=== PATIENT | female | born 2000 ===

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

== ENCOUNTER 2021-02-08 07:01 | Emergency (ER) | payer OTHER ==
[2021-02-08 07:20] VITALS: TEMP 98.5
[2021-02-08] MEDS ORDERED: ORPHENADRINE 30 MG/ML 2 ML VIAL IM STA (07:45)
[2021-02-08] MEDS ORDERED: KETOROLAC 15 MG/ML 1 ML VIAL IM STA (07:45)
[2021-02-08 08:14] LABS: Appearance,Urine Clear (Clear); Bilirubin,Urine Negative (Negative); Blood,Urine Moderate (Negative); Color,Urine Yellow; Glucose,Urine (UA) Negative (Negative); Ketones,Urine Negative (Negative); Leukocyte Esterase,Urine Negative (Negative); Mucus,Urine Rare /hpf; Nitrite,Urine Negative (Negative); PH, Urine 6.5 (5.0-8.0); Protein,Urine Negative (Negative); RBC,Urine 22 /hpf (0-5); Specific Gravity,Urine 1.022 (1.001-1.035); Squamous Epithelial Cell,Urine 1 /hpf (0-4); Urobilinogen,Urine <2.0 mg/dL (<2.0); WBC,Urine <1 /hpf (0-5)
--- NOTE | 2021-02-08 08:27 | ED ---
General Adult HPI - General Chief complaint: Back Pain/Injury Stated complaint: Back Pain Time Seen by Provider: 02/08/21 07:23 Source: patient, RN notes reviewed Mode of arrival: ambulatory Limitations: no limitations - History of Present Illness Initial comments: 20-year-old female with a past medical history of vertigo presents to the emergency room for a chief complaint of back pain. Patient reports that she was bending down at work yesterday to pick something up and felt a sudden sharp pain in her lower back. States that since that time and has continued to be painful little bit more on the right than the left. States that hurts to stand up straight and walk. Patient denies any weakness of the legs. Denies any radiating pain down the legs or numbness or tingling of the lower extremities. Patient denies blood or bowel changes, fevers, history of IV drug abuse. Patient states she did take Tylenol yesterday but otherwise has not taken any other medications.Patient has no other complaints at this time including shortness of breath, chest pain, abdominal pain, nausea or vomiting, headache, or visual changes. - Related Data Home Medications Medication Instructions Recorded Confirmed Acetaminophen Tab [Tylenol Tab] 1,000 mg PO Q6HR PRN 02/08/21 02/08/21 Ibuprofen [Motrin Ib] 800 mg PO Q8H PRN 02/08/21 02/08/21 Previous Rx's Medication Instructions Recorded Cyclobenzaprine [Flexeril] 5 mg PO TID #12 tablet 02/08/21 Allergies Allergy/AdvReac Type Severity Reaction Status Date / Time No Known Allergies Allergy Verified 02/08/21 07:51 Review of Systems ROS Statement: Those systems with pertinent positive or pertinent negative responses have been documented in the HPI. ROS Other: All systems not noted in ROS Statement are negative. Past Medical History Past Medical History: No Reported History Additional Past Medical History / Comment(s): vertigo History of Any Multi-Drug Resistant Organisms: None Reported Past Surgical History: No Surgical Hx Reported Past Psychological History: No Psychological Hx Reported Smoking Status: Never smoker Past Alcohol Use History: Rare Past Drug Use History: None Reported General Exam Limitations: no limitations General appearance: alert, in no apparent distress Head exam: Present: atraumatic, normocephalic, normal inspection Eye exam: Present: normal appearance, PERRL, EOMI. Absent: scleral icterus, conjunctival injection, periorbital swelling ENT exam: Present: normal exam, mucous membranes moist Neck exam: Present: normal inspection, full ROM. Absent: tenderness, meningismus, lymphadenopathy Respiratory exam: Present: normal lung sounds bilaterally. Absent: respiratory distress, wheezes, rales, rhonchi, stridor Cardiovascular Exam: Present: regular rate, normal rhythm, normal heart sounds. Absent: systolic murmur, diastolic murmur, rubs, gallop, clicks GI/Abdominal exam: Present: soft, normal bowel sounds. Absent: distended, ten derness, guarding, rebound, rigid Extremities exam: Present: normal capillary refill (cap refill less than 2 seconds bilateral lower extremities.), other (Sensation intact bilateral lower extremity. Strength is 5 out of 5.) Back exam: Absent: full ROM (Patient able to extend to a neutral position. Unable to extend past this point. Patient does have full flexion but this does elicit pain.), CVA tenderness (R), CVA tenderness (L), vertebral tenderness Course Vital Signs 02/08/21 07:18 Temperature 98.5 F Pulse Rate 82 Respiratory 20 Rate Blood Pressure 142/89 O2 Sat by Pulse 99 Oximetry Medical Decision Making - Medical Decision Making Vitals are stable. Patient is well-appearing. Pain is mechanical in nature. No red flag symptoms. Urinalysis was obtained. No evidence of infection. Red blood cells likely related to patient's menstrual cycle as she is currently menstruating. HCG is negative. Patient was given Toradol and Norflex. Patient will be discharged home to follow up with primary care or orthopedics. Discussed using Motrin Tylenol and Flexeril for pain. She'll return here for any worsening symptoms. - Lab Data Lab Results 02/08/21 02/08/21 Range/Units 07:54 07:54 Urine Color Yellow Urine Appearance Clear (Clear) Urine pH 6.5 (5.0-8.0) Ur Specific [place] 1.022 (1.001-1.035) Urine Protein Negative (Negative) Urine Glucose (UA) Negative (Negative) Urine Ketones Negative (Negative) Urine Blood Moderate H (Negative) Urine Nitrite Negative (Negative) Urine Bilirubin Negative (Negative) Urine Urobilinogen <2.0 (<2.0) mg/dL Ur Leukocyte Esterase Negative (Negative) Urine RBC 22 H (0-5) /hpf Urine WBC <1 (0-5) /hpf Ur Squamous Epith Cells 1 (0-4) /hpf Urine Mucus Rare H (None) /hpf Urine HCG, Qual Not Detected (Not Detectd) Disposition Clinical Impression: Mechanical back pain Disposition: HOME SELF-CARE Condition: Good Instructions (If sedation given, give patient instructions): Acute Low Back Pain (ED) Additional Instructions: Please take Motrin and Tylenol for pain. You can take 600 mg of Motrin every 6 hours. You can take 1000 mg of Tylenol every 6 hours. Take Flexeril as needed but do not drive, work, or operate machinery if you are taking this. Follow-up with primary care or orthopedics. If symptoms persist you may require an MRI. Return to the emergency room for worsening symptoms such as bladder or bowel changes, weakness in the lower extremities, fevers, or any other worsening symptoms. Prescriptions: Cyclobenzaprine [Flexeril] 5 mg PO TID #12 tablet Is patient prescribed a controlled substance at d/c from ED?: No Referrals: Dirk Miller [STAFF PHYSICIAN] - 1-2 days Faustina Albarado DO [Doctor of Osteopathic Medicine] - 1-2 days Time of Disposition: 08:25
[2021-02-08 08:48] VITALS: BP 126/83; PULSE 89; RESP 18
== END 2021-02-08 08:48 | disposition home or self-care (01) ==
LOC: EC 07:01
DX: M54.5 Low back pain (principal); X50.1XXA Overexertion from prolonged static or awkward postures, initial encounter; Y92.69 Other specified industrial and construction area as the place of occurrence of the external cause; Y99.0 Civilian activity done for income or pay
CPT/HCPCS: 81001; 81025; 99283; 96372 ×2; J2360; J1885

== ENCOUNTER 2021-02-18 15:25 | Emergency (ER) | payer OTHER ==
[2021-02-18 15:29] VITALS: BP 127/83; PULSE 80; RESP 20; TEMP 97.9
[2021-02-18] MEDS ORDERED: ACETAMINOPHEN TAB 325 MG TAB PO STA (16:52)
--- NOTE | 2021-02-18 17:24 | ED ---
General Adult HPI - General Chief complaint: ENT Stated complaint: Sore throat Time Seen by Provider: 02/18/21 15:57 Source: patient, RN notes reviewed Mode of arrival: ambulatory Limitations: no limitations - History of Present Illness Initial comments: 20-year-old female presents to the emergency room for a chief complaint of sore throat. Patient states that yesterday she started to get a sore throat. States it is scratchy and painful socially when she swallows. States her nose is running as well. Patient denies fevers. Denies cough. Denies shortness of breath. Patient denies anyone else being sick around her. Denies any known Covid exposures.Patient has no other complaints at this time including shortness of breath, chest pain, abdominal pain, nausea or vomiting, headache, or visual changes. - Related Data Home Medications Medication Instructions Recorded Confirmed Acetaminophen Tab [Tylenol] 1,000 mg PO Q4-6H PRN 02/18/21 02/18/21 Dm/Acetaminophen/Doxylamine [Vicks 1 cap PO HS PRN 02/18/21 02/18/21 Nyquil Liquicaps] guaiFENesin SYRUP 100MG/5ML 200 mg PO Q4-6H PRN 02/18/21 02/18/21 [Robitussin] Allergies Allergy/AdvReac Type Severity Reaction Status Date / Time No Known Allergies Allergy Verified 02/18/21 16:23 Review of Systems ROS Statement: Those systems with pertinent positive or pertinent negative responses have been documented in the HPI. ROS Other: All systems not noted in ROS Statement are negative. Past Medical History Past Medical History: No Reported History Additional Past Medical History / Comment(s): vertigo History of Any Multi-Drug Resistant Organisms: None Reported Past Surgical History: No Surgical Hx Reported Past Psychological History: No Psychological Hx Reported Smoking Status: Never smoker Past Alcohol Use History: Rare Past Drug Use History: None Reported General Exam Limitations: no limitations General appearance: alert, in no apparent distress Head exam: Present: atraumatic, normocephalic, normal inspection Eye exam: Present: normal appearance, PERRL, EOMI. Absent: scleral icterus, conjunctival injection, periorbital swelling ENT exam: Present: normal exam, normal oropharynx (No tonsillar exuded, uvula midline), mucous membranes moist, TM's normal bilaterally, normal external ear exam Neck exam: Present: normal inspection, full ROM. Absent: tenderness, meningismus, lymphadenopathy Respiratory exam: Present: normal lung sounds bilaterally. Absent: respiratory distress, wheezes, rales, rhonchi, stridor Cardiovascular Exam: Present: regular rate, normal rhythm, normal heart sounds. Absent: systolic murmur, diastolic murmur, rubs, gallop, clicks GI/Abdominal exam: Present: soft, normal bowel sounds. Absent: distended, tenderness, guarding, rebound, rigid Course Vital Signs 02/18/21 15:27 Temperature 97.9 F Pulse Rate 80 Respiratory 20 Rate Blood Pressure 127/83 O2 Sat by Pulse 99 Oximetry Medical Decision Making - Medical Decision Making Vitals are stable. Patient is not short of breath. Strep is negative. Tucker virus is positive. Patient denies cough or shortness of breath, does not require chest x-ray this time. She is stable for discharge home. recommend she follow up with her doctor and drink plenty of fluids. If she has any worsening symptoms she'll return here to the emergency room. - Lab Data Lab Results 02/18/21 02/18/21 Range/Units 17:30 17:30 Coronavirus (PCR) Detected A (Not Detectd) Group A Strep Rapid Negative (Negative) Disposition Clinical Impression: COVID-19 Disposition: HOME SELF-CARE Condition: Good Instructions (If sedation given, give patient instructions): Coronavirus Disease 2019 (COVID-19) Additional Instructions: Please drink plenty of fluids. Take Motrin and Tylenol for fever. Follow-up with your doctor. You muust quarantine for at least 10-14 days from symptom onset. Return to the emergency room for any worsening symptoms. Is patient prescribed a controlled substance at d/c from ED?: No Referrals: Dirk Miller [STAFF PHYSICIAN] - 1-2 days Time of Disposition: 18:07
== END 2021-02-18 18:24 | disposition home or self-care (01) ==
LOC: EC 15:25
DX: U07.1 COVID-19 (principal)
CPT/HCPCS: 87081; 87430; 87635; 99283

== ENCOUNTER 2021-04-16 09:29 | Emergency (ER) | payer OTHER ==
[2021-04-16 09:33] VITALS: BP 131/76; PULSE 87; RESP 18; TEMP 97.8
--- NOTE | 2021-04-16 09:52 | ED ---
General Adult HPI - General Chief complaint: Upper Respiratory Infection Stated complaint: congestion Time Seen by Provider: 04/16/21 09:39 Source: patient, RN notes reviewed Mode of arrival: ambulatory Limitations: no limitations - History of Present Illness Initial comments: Patient is a pleasant 20-year-old female presenting to the emergency department with nasal congestion and sore throat. Onset of symptoms was 2-3 days ago. No fever. Occasional cough. Patient relates to her congestion. Cough is nonproductive. No dyspnea. No fevers. Patient did have rotavirus infection just 2 months ago. - Related Data Home Medications Medication Instructions Recorded Confirmed Acetaminophen Tab [Tylenol] 1,000 mg PO Q4-6H PRN 02/18/21 04/16/21 guaiFENesin SYRUP 100MG/5ML 200 mg PO Q4-6H PRN 02/18/21 04/16/21 [Robitussin] guaiFENesin [Mucinex] 600 mg PO Q12H PRN 04/16/21 04/16/21 Allergies Allergy/AdvReac Type Severity Reaction Status Date / Time No Known Allergies Allergy Verified 04/16/21 10:47 Review of Systems ROS Statement: Those systems with pertinent positive or pertinent negative responses have been documented in the HPI. ROS Other: All systems not noted in ROS Statement are negative. Constitutional: Denies: fever Eyes: Denies: eye pain ENT: Denies: ear pain Respiratory: Reports: as per HPI. Denies: dyspnea Cardiovascular: Denies: chest pain Endocrine: Denies: fatigue Gastrointestinal: Denies: abdominal pain Genitourinary: Denies: urgency Musculoskeletal: Denies: back pain Skin: Denies: rash Neurological: Denies: weakness Past Medical History Past Medical History: No Reported History Additional Past Medical History / Comment(s): vertigo History of Any Multi-Drug Resistant Organisms: None Reported Past Surgical History: No Surgical Hx Reported Past Psychological History: No Psychological Hx Reported Smoking Status: Never smoker Past Alcohol Use History: Rare Past Drug Use History: None Reported General Exam Limitations: no limitations General appearance: alert, in no apparent distress Head exam: Present: normocephalic Eye exam: Present: normal appearance ENT exam: Present: other (Pharyngeal erythema) Neck exam: Present: lymphadenopathy (Mild anterior cervical, nontender). Absent: meningismus Respiratory exam: Present: normal lung sounds bilaterally Cardiovascular Exam: Present: regular rate, normal rhythm GI/Abdominal exam: Present: soft. Absent: tenderness, organomegaly Extremities exam: Present: normal inspection Neurological exam: Present: alert Psychiatric exam: Present: normal affect, normal mood Skin exam: Present: normal color Course Vital Signs 04/16/21 09:29 Temperature 97.8 F Pulse Rate 87 Respiratory 18 Rate Blood Pressure 131/76 O2 Sat by Pulse 99 Oximetry Medical Decision Making - Medical Decision Making Patient reevaluated and updated. - Lab Data Lab Results 04/16/21 Range/Units 10:03 Group A Strep Rapid Negative (Negative) Disposition Clinical Impression: Acute upper respiratory infection Disposition: HOME SELF-CARE Condition: Stable Instructions (If sedation given, give patient instructions): Upper Respiratory Infection (ED) Additional Instructions: [id number] Tylenol or Motrin if needed. Salt water gargle as needed. Saline nasal spray. [id number]-[id number] antihistamines such as Claritin or Krystle or Benadryl if needed. Return for difficulty breathing, not tolerating oral intake, worsening symptoms or any other concerns. Is patient prescribed a controlled substance at d/c from ED?: No Referrals: Yamile Genao MD [STAFF PHYSICIAN] - 1-2 days Time of Disposition: 11:07
== END 2021-04-16 11:44 | disposition home or self-care (01) ==
LOC: EC 09:29
DX: J06.9 Acute upper respiratory infection, unspecified (principal)
CPT/HCPCS: 87081; 87430; 99283

== ENCOUNTER 2021-05-02 17:14 | Emergency (ER) | payer OTHER ==
[2021-05-02 17:36] VITALS: BP 134/87; PULSE 87; RESP 18; TEMP 98
[2021-05-02 18:09] LABS: Appearance,Urine Clear (Clear); Bilirubin,Urine Negative (Negative); Blood,Urine Negative (Negative); Color,Urine Yellow; Glucose,Urine (UA) Negative (Negative); Ketones,Urine Negative (Negative); Leukocyte Esterase,Urine Negative (Negative); Nitrite,Urine Negative (Negative); PH, Urine 6.5 (5.0-8.0); Protein,Urine Trace (Negative); Urobilinogen,Urine <2.0 mg/dL (<2.0)
[2021-05-02] MEDS ORDERED: cefTRIAXone 1,000 MG VIAL (IM USE) IM STA (21:03)
[2021-05-02] MEDS ORDERED: DOXYCYCLINE 100 MG CAP PO STA (21:03)
[2021-05-02] MEDS ORDERED: metroNIDAZOLE 500 MG TAB PO STA (21:03)
--- NOTE | 2021-05-02 21:05 | ED ---
General Adult HPI - General Chief complaint: Urogenital Stated complaint: UTI Time Seen by Provider: 05/02/21 20:24 Source: patient Mode of arrival: ambulatory Limitations: no limitations - History of Present Illness Initial comments: 20 year-old female patient presents to the emergency department for evaluation of dysuria x1 week. States that she has also had increase in vaginal discharge. Denies any urinary frequency or urgency. Denies back pain, abdominal pain, fever, or chills. Denies any nausea or vomiting. Denies chance of . States she has had UTI in the past and feels like her symptoms are similar. - Related Data Home Medications Medication Instructions Recorded Confirmed Acetaminophen Tab [Tylenol] 1,000 mg PO Q4-6H PRN 02/18/21 04/16/21 guaiFENesin SYRUP 100MG/5ML 200 mg PO Q4-6H PRN 02/18/21 04/16/21 [Robitussin] guaiFENesin [Mucinex] 600 mg PO Q12H PRN 04/16/21 04/16/21 Previous Rx's Medication Instructions Recorded Doxycycline [Vibramycin] 100 mg PO BID #14 capsule 05/02/21 Allergies Allergy/AdvReac Type Severity Reaction Status Date / Time No Known Allergies Allergy Verified 05/02/21 18:51 Review of Systems ROS Statement: Those systems with pertinent positive or pertinent negative responses have been documented in the HPI. ROS Other: All systems not noted in ROS Statement are negative. Past Medical History Past Medical History: No Reported History Additional Past Medical History / Comment(s): vertigo History of Any Multi-Drug Resistant Organisms: None Reported Past Surgical History: No Surgical Hx Reported Past Psychological History: No Psychological Hx Reported Smoking Status: Never smoker Past Alcohol Use History: Rare Past Drug Use History: None Reported General Exam Limitations: no limitations General appearance: alert, in no apparent distress ENT exam: Present: normal exam, normal oropharynx, mucous membranes moist Respiratory exam: Present: normal lung sounds bilaterally. Absent: respiratory distress, wheezes, rales, rhonchi, stridor Cardiovascular Exam: Present: regular rate, normal rhythm, normal heart sounds. Absent: systolic murmur, diastolic murmur, rubs, gallop, clicks GI/Abdominal exam: Present: soft, normal bowel sounds. Absent: distended, tenderness, guarding, rebound, rigid External exam: Present: normal external exam Speculum exam: Present: erythema (cervical), vaginal discharge (thin, yellow) By manual exam: Present: normal by manual exam. Absent: cervical motion tenderness Neurological exam: Present: alert, oriented X3, CN II-XII intact Psychiatric exam: Present: normal affect, normal mood Skin exam: Present: warm, dry, intact, normal color. Absent: rash Course Vital Signs 05/02/21 17:33 Temperature 98.0 F Pulse Rate 87 Respiratory 18 Rate Blood Pressure 134/87 O2 Sat by Pulse 98 Oximetry Medical Decision Making - Medical Decision Making 20-year-old female patient presented to the emergency department today for evaluation of dysuria. Physical examination revealed soft nontender abdomen. No CVA tenderness. Urinalysis came back negative for UTI. Did perform pelvic exam, obtained swabs. She did test positive for Trichomonas. She was treated with 2000 mg of Flagyl, 500 mg of Rocephin and 1 week of doxycycline. She'll be discharged from the primary care physician and [facility] for further evaluation as soon as possible. Return parameters were discussed in detail. She verbalizes understanding and agrees with this plan. My attending is Dr. Ashley. - Lab Data Lab Results 05/02/21 05/02/21 05/02/21 Range/Units 17:46 17:46 21:16 Urine Color Yellow Urine Appearance Clear (Clear) Urine pH 6.5 (5.0-8.0) Ur Specific [place] 1.030 (1.001-1.035) Urine Protein Trace H (Negative) Urine Glucose (UA) Negative (Negative) Urine Ketones Negative (Negative) Urine Blood Negative (Negative) Urine Nitrite Negative (Negative) Urine Bilirubin Negative (Negative) Urine Urobilinogen <2.0 (<2.0) mg/dL Ur Leukocyte Esterase Negative (Negative) Urine HCG, Qual Not Detected (Not Detectd) Trichomonas Ag (Rapid) Positive H (Negative) Disposition Clinical Impression: Dysuria, Cervicitis Disposition: HOME SELF-CARE Condition: Good Instructions (If sedation given, give patient instructions): Cervicitis (ED), Sexually Transmitted Diseases (ED) Additional Instructions: Take medications as directed. Await culture results, these generally takes 3 days. Follow-up with the primary care physician for recheck in 1-2 days. Follow-up with [facility] as possible. Return for any new, worsening, or concerning symptoms. Prescriptions: Doxycycline [Vibramycin] 100 mg PO BID #14 capsule Is patient prescribed a controlled substance at d/c from ED?: No Referrals: None,Stated [Primary Care Provider] - 1-2 days Time of Disposition: 21:05
[2021-05-03 16:20] LABS: C. trachomatis,PCR Negative (Neg,Equiv); Chlamydia trachomatis Source Vagina; N. gonorrhoeae,PCR Negative (Neg,Equiv); Neisseria Source Vagina
== END 2021-05-02 22:08 | disposition home or self-care (01) ==
LOC: EC 17:14
DX: N72 Inflammatory disease of cervix uteri (principal); R30.0 Dysuria
CPT/HCPCS: 81003; 81025; 87808; 87491; 87591; 87070; 99283; 96372; J0696

== ENCOUNTER 2021-05-25 14:50 | Emergency (ER) | payer OTHER ==
[2021-05-25 15:02] VITALS: BP 137/91; PULSE 89; RESP 18; TEMP 98
[2021-05-25 16:02] LABS: Appearance,Urine Clear (Clear); Bilirubin,Urine Negative (Negative); Blood,Urine Negative (Negative); Color,Urine Light Yellow; Glucose,Urine (UA) Negative (Negative); Ketones,Urine Negative (Negative); Leukocyte Esterase,Urine Negative (Negative); Nitrite,Urine Negative (Negative); PH, Urine 6.5 (5.0-8.0); Protein,Urine Negative (Negative); Specific Gravity,Urine 1.021 (1.001-1.035); Urobilinogen,Urine <2.0 mg/dL (<2.0)
--- NOTE | 2021-05-25 16:29 | ED ---
Abdominal Pain HPI - General Chief Complaint: Abdominal Pain Stated Complaint: STD Time Seen by Provider: 05/25/21 15:06 Source: patient Mode of arrival: ambulatory Limitations: no limitations - History of Present Illness Initial Comments: Patient is a 20-year-old female presenting to emergency Department with concerns of possible STD. Patient states she was here approximately 3 weeks ago, was diagnosed with trichomonas and was treated. She states she finished the entire course of medicine. She states 2 weeks ago she took a test which was positive. She is still having a little bit of discharge and is concerned that she still has an STD. She denies any fevers or chills, no abdominal pain, no vaginal bleeding. This would be her first . Patient has no chest pain or shortness of breath. There are no further complaints at this time. - Related Data Home Medications Medication Instructions Recorded Confirmed Acetaminophen Tab [Tylenol] 1,000 mg PO Q4-6H PRN 02/18/21 04/16/21 guaiFENesin SYRUP 100MG/5ML 200 mg PO Q4-6H PRN 02/18/21 04/16/21 [Robitussin] guaiFENesin [Mucinex] 600 mg PO Q12H PRN 04/16/21 04/16/21 Previous Rx's Medication Instructions Recorded Doxycycline [Vibramycin] 100 mg PO BID #14 capsule 05/02/21 Allergies Allergy/AdvReac Type Severity Reaction Status Date / Time No Known Allergies Allergy Verified 05/25/21 15:02 Review of Systems ROS Statement: Those systems with pertinent positive or pertinent negative responses have been documented in the HPI. ROS Other: All systems not noted in ROS Statement are negative. Past Medical History Past Medical History: No Reported History Additional Past Medical History / Comment(s): vertigo History of Any Multi-Drug Resistant Organisms: None Reported Past Surgical History: No Surgical Hx Reported Past Psychological History: No Psychological Hx Reported Smoking Status: Never smoker Past Alcohol Use History: None Reported Past Drug Use History: None Reported General Exam - General Exam Comments Initial Comments: GENERAL: Patient is well-developed and well-nourished. Patient is nontoxic and in no acute distress. HEAD: Atraumatic, normocephalic. EYES: Pupils equal round and reactive to light, extraocular movements intact, sclera anicteric, conjunctiva are normal. Eyelids were unremarkable. ENT: TMs normal, nares patent, oropharynx clear without exudates. Moist mucous membranes. NECK: Normal range of motion, supple without lymphadenopathy or JVD. LUNGS: Unlabored respirations. Breath sounds clear to auscultation bilaterally and equal. No wheezes rales or rhonchi. HEART: Regular rate and rhythm without murmurs, rubs or gallops. ABDOMEN: Soft, nontender, normoactive bowel sounds. No guarding, no rebound. No masses appreciated. MUSCULOSKELETAL: Normal extremities with adequate strength and normal range of motion, no pitting or edema. No clubbing or cyanosis. NEUROLOGICAL: Patient is alert and oriented x 3. Motor and sensory are also intact. Cranial nerves II through XII grossly intact. Symmetrical smile. Normal speech, normal gait. PSYCH: Normal mood, normal affect. SKIN: Warm, Dry, normal turgor, no rashes or lesions noted. Limitations: no limitations External exam: Present: normal external exam Speculum exam: Present: normal speculum exam By manual exam: Present: normal by manual exam Course Vital Signs 05/25/21 14:58 Temperature 98.0 F Pulse Rate 89 Respiratory 18 Rate Blood Pressure 137/91 O2 Sat by Pulse 98 Oximetry Medical Decision Making - Medical Decision Making Patient is a 20-year-old female here with concerns of possible STD. She still having some mild cervical discharge, she was diagnosed with trichomonas 3 weeks ago, finished treatment. She recently tested positive for as well. No abdominal pain, no fevers, no vaginal bleeding. Urine today looks normal, urine hCG is positive. Trichomonas is negative. Gonorrhea, chlamydia, genital culture are all pending. We will await the results of these tests for any further treatment secondary to her . She can follow up with her T[employer]ATING INSPECTOR. Return parameters were discussed with the patient she verbalized understanding. She is stable for discharge. Case discussed with Dr. Blandon. - Lab Data Lab Results 05/25/21 05/25/21 05/25/21 Range/Units 15:52 15:52 15:52 Urine Color Light Yellow Urine Appearance Clear (Clear) Urine pH 6.5 (5.0-8.0) Ur Specific [place] 1.021 (1.001-1.035) Urine Protein Negative (Negative) Urine Glucose (UA) Negative (Negative) Urine Ketones Negative (Negative) Urine Blood Negative (Negative) Urine Nitrite Negative (Negative) Urine Bilirubin Negative (Negative) Urine Urobilinogen <2.0 (<2.0) mg/dL Ur Leukocyte Esterase Negative (Negative) Urine HCG, Qual Detected (Not Detectd) Trichomonas Ag (Rapid) Negative (Negative) Disposition Clinical Impression: , Dysuria Disposition: HOME SELF-CARE Condition: Stable Instructions (If sedation given, give patient instructions): Normal Exam (ED) Additional Instructions: Please return to the Emergency Department if symptoms worsen or any other concerns. Cultures are pending at this time. Please follow up with your TREATING INSPECTOR. Is patient prescribed a controlled substance at d/c from ED?: No Referrals: None,Stated [Primary Care Provider] - 1-2 days Time of Disposition: 16:28
[2021-05-27 15:47] LABS: C. trachomatis,PCR Negative (Neg,Equiv); Chlamydia trachomatis Source Cervix; N. gonorrhoeae,PCR Negative (Neg,Equiv); Neisseria Source Cervix
== END 2021-05-25 16:30 | disposition home or self-care (01) ==
LOC: EC 14:50
DX: O26.899 Other specified pregnancy related conditions, unspecified trimester (principal); R30.0 Dysuria; Z79.899 Other long term (current) drug therapy; Z3A.00 Weeks of gestation of pregnancy not specified
CPT/HCPCS: 81003; 81025; 87070; 87491; 87591; 87808; 99283

== ENCOUNTER 2021-06-05 | Emergency (ER) | payer OTHER | END 2021-06-05 10:36 | disposition home or self-care (01) | CPT/HCPCS: 36415; 76801; 76817; 80053; 81001; 84702; 85025; 86900; 86901; 99284 ==

== ENCOUNTER 2021-09-24 18:19 | Emergency (ER) | payer OTHER ==
[2021-09-24] MEDS ORDERED: ACETAMINOPHEN TAB 325 MG TAB PO STA (20:58)
--- NOTE | 2021-09-24 21:03 | ED ---
Fever HPI - General Chief Complaint: Fever Stated Complaint: 23wks preg, fever, bodyaches, chest pain Time Seen by Provider: 09/24/21 20:40 Source: patient, RN notes reviewed Mode of arrival: ambulatory Limitations: no limitations - History of Present Illness Initial Comments: Patient is a 21-year-old female that presents to the emergency department com plaining of a fever. She notes that she also has muscle aches fatigue and a mild cough. She denied any close contact with Covid-positive people. She was otherwise well-appearing. She denied any chest pain shortness breath headache nausea vomiting diarrhea constipation fever fatigue chills. - Related Data Home Medications Medication Instructions Recorded Confirmed Acetaminophen Tab [Tylenol] 1,000 mg PO Q4-6H PRN 02/18/21 04/16/21 guaiFENesin SYRUP 100MG/5ML 200 mg PO Q4-6H PRN 02/18/21 04/16/21 [Robitussin] guaiFENesin [Mucinex] 600 mg PO Q12H PRN 04/16/21 04/16/21 Previous Rx's Medication Instructions Recorded Doxycycline [Vibramycin] 100 mg PO BID #14 capsule 05/02/21 Allergies Allergy/AdvReac Type Severity Reaction Status Date / Time No Known Allergies Allergy Verified 06/05/21 08:17 Review of Systems ROS Statement: Those systems with pertinent positive or pertinent negative responses have been documented in the HPI. ROS Other: All systems not noted in ROS Statement are negative. Past Medical History Past Medical History: No Reported History Additional Past Medical History / Comment(s): vertigo History of Any Multi-Drug Resistant Organisms: None Reported Past Surgical History: No Surgical Hx Reported Past Psychological History: No Psychological Hx Reported Smoking Status: Never smoker Past Alcohol Use History: None Reported Past Drug Use History: None Reported General Exam Limitations: no limitations General appearance: alert, in no apparent distress, obese Head exam: Present: atraumatic, normocephalic, normal inspection Eye exam: Present: normal appearance, PERRL, EOMI. Absent: scleral icterus, conjunctival injection, periorbital swelling ENT exam: Present: normal exam, mucous membranes moist Neck exam: Present: normal inspection Respiratory exam: Present: normal lung sounds bilaterally. Absent: respiratory distress, wheezes, rales, rhonchi, stridor Cardiovascular Exam: Present: regular rate, normal rhythm, normal heart sounds. Absent: systolic murmur, diastolic murmur, rubs, gallop, clicks Extremities exam: Present: normal inspection, full ROM, normal capillary refill. Absent: tenderness, pedal edema, joint swelling, calf tenderness Neurological exam: Present: alert, oriented X3 Psychiatric exam: Present: normal affect, normal mood Skin exam: Present: warm, dry, intact, normal color. Absent: rash Course Vital Signs 09/24/21 18:48 Temperature 99.3 F Pulse Rate 111 H Respiratory 16 Rate Blood Pressure 123/84 O2 Sat by Pulse 96 Oximetry Medical Decision Making - Medical Decision Making 21-year-old female with a mild fever. 4 Plex ordered. 4 Plex negative. Patient has a upper respiratory tract syndrome with mild fever. 650 mg of Tylenol ordered. Case discussed with Dr. Ashley, patient can discharge home. - Lab Data Lab Results 09/24/21 Range/Units 18:52 Influenza Type A (PCR) Not Detected (Not Detectd) Influenza Type B (PCR) Not Detected (Not Detectd) RSV (PCR) Not Detected (Not Detectd) SARS-CoV-2 (PCR) Not Detected (Not Detectd) Disposition Clinical Impression: Upper respiratory tract infection, Fever Disposition: HOME SELF-CARE Condition: Stable Instructions (If sedation given, give patient instructions): Fever in Adults (ED) Additional Instructions: Please return to the Emergency Department if symptoms worsen or any other concerns. Follow-up with primary care in 1-2 days. Tylenol Motrin alternating every 3 hours for fever. Plenty of fluids and rest. Is patient prescribed a controlled substance at d/c from ED?: No Referrals: None,Stated [Primary Care Provider] - 1-2 days Time of Disposition: 21:03
[2021-09-24 21:18] VITALS: BP 129/68; PULSE 104; RESP 18; TEMP 98.4
== END 2021-09-24 21:19 | disposition home or self-care (01) ==
LOC: EC 18:19
DX: J06.9 Acute upper respiratory infection, unspecified (principal); Z20.822 Contact with and (suspected) exposure to COVID-19
CPT/HCPCS: 87636; 99283

== ENCOUNTER 2021-12-14 13:01 | Inpatient (IN) | payer OTHER ==
--- NOTE | 2021-12-14 13:41 | ED ---
General Adult HPI - General Source: patient, RN notes reviewed, old records reviewed Mode of arrival: ambulatory Limitations: no limitations <Boyd Neff - Last Filed: 12/14/21 15:02> <Jorge Luis Rader - Last Filed: 12/14/21 17:18> - General Chief complaint: Recheck/Abnormal Lab/Rx Stated complaint: 35 Weeks , sent by OB for BAM Time Seen by Provider: 12/14/21 13:14 - History of Present Illness Initial comments: This is a 21-year-old female who presents emergency Department 35 weeks . Patient states she had exposure to COVID on Thursday. Patient states that since she's had a sore throat some congestion and body aches. Patient has chest pain which is sharp but denies difficulty breathing or shortness of breath. Patient states she did take Tylenol this morning and did vomit up times one. Patient states she spoke to her OB and he wanted her to come in to get a COVID test and if she is positive to get the medical advice. Patient denies any nausea currently. Patient denies any abdominal pain. (Boyd Neff) - Related Data Home Medications Medication Instructions Recorded Confirmed Acetaminophen Tab [Tylenol] 1,000 mg PO Q4-6H PRN 02/18/21 12/14/21 Preplus 27-1 Mg 1 tab PO DAILY 12/14/21 12/14/21 Allergies Allergy/AdvReac Type Severity Reaction Status Date / Time No Known Allergies Allergy Verified 12/14/21 15:49 Review of Systems ROS Other: All systems not noted in ROS Statement are negative. <Boyd Neff - Last Filed: 12/14/21 15:02> ROS Other: All systems not noted in ROS Statement are negative. <Jorge Luis Rader - Last Filed: 12/14/21 17:18> ROS Statement: Those systems with pertinent positive or pertinent negative responses have been documented in the HPI. Past Medical History Past Medical History: No Reported History Additional Past Medical History / Comment(s): vertigo History of Any Multi-Drug Resistant Organisms: None Reported Past Surgical History: No Surgical Hx Reported Past Psychological History: No Psychological Hx Reported Smoking Status: Never smoker Past Alcohol Use History: None Reported Past Drug Use History: None Reported <Boyd Neff - Last Filed: 12/14/21 15:02> General Exam Limitations: no limitations <Boyd Neff - Last Filed: 12/14/21 15:02> - General Exam Comments Initial Comments: GENERAL: Patient is well-developed and well-nourished. Patient is nontoxic and well- hydrated and is in mild distress. ENT: Neck is soft and supple. No significant lymphadenopathy is noted. Oropharynx is clear. Moist mucous membranes. Neck has full range of motion without eliciting any pain. EYES: The sclera were anicteric and conjunctiva were pink and moist. Extraocular movements were intact and pupils were equal round and reactive to light. Eyelids were unremarkable. PULMONARY: Unlabored respirations. Good breath sounds bilaterally. No audible rales rhonchi or wheezing was noted. CARDIOVASCULAR: Patient is tachycardic but 110 bpm ABDOMEN: Soft and nontender with normal bowel sounds. SKIN: Skin is clear with no lesions or rashes and otherwise unremarkable. NEUROLOGIC: Patient is alert and oriented x3. Cranial nerves II through XII are grossly intact. Motor and sensory are also intact. Normal speech, volume and content. Symmetrical smile. MUSCULOSKELETAL: Normal extremities with adequate strength and full range of motion. LYMPHATICS: No significant lymphadenopathy is noted PSYCHIATRIC: Normal psychiatric evaluation. (Neff,Boyd) Course <Jorge Luis Rader - Last Filed: 12/14/21 17:18> Vital Signs 12/14/21 13:04 Temperature 98.6 F Pulse Rate 122 H Respiratory 18 Rate Blood Pressure 143/83 O2 Sat by Pulse 100 Oximetry - Reevaluation(s) Reevaluation #1: 12/14/21 15:47 Case and test results were discussed with Dr. Le (FINANCIAL ANALYSIS CONSULTANT). He states that from an OB standpoint, he will send somebody down to the ED to perform a nonstress test on the patient. Otherwise, he recommends consulting the medical service for further management recommendations. 12/14/21 16:10 Case, test results and my discussion with Dr. Le as above were discussed with Dr. De La Cruz. He recommends heparin anticoagulation and pulmonology consultation. He also recommends ordering a d-dimer. He has no further recommendations at this time. 12/14/21 16:17 Patient denies development of any new symptoms while in the ED. Patient remains alert and breathing comfortably with a normal room air oxygen saturation. Patient is aware of my discussions as above, and she agrees with heparin anticoagulation and hospital admission at this time. (Jorge Luis Rader) Medical Decision Making <Boyd Neff - Last Filed: 12/14/21 15:02> - Lab Data Result diagrams: 12/14/21 16:24 12/14/21 16:24 <Jorge Luis Rader - Last Filed: 12/14/21 17:18> - Medical Decision Making EKG shows sinus tachycardia at 150 bpm HI interval 250 QRS 76 QT interval 336 Q TC is 464 per patient's EKG shows some T-wave inversions in leads 3 and aVF. Patient will receive monoclonal antibodies. Dr. Rader will be taking over the care of this patient at 3 PM (Boyd Neff) Patient was endorsed to me (secondary to shift change) by Dr. Neff with the patient's CT angiography chest with IV contrast pending. Patient's CT angiography chest with IV contrast is nondiagnostic for PE, but does demonstrate some filling defects. Given this, the patient's risk factors and her tachycardia, it was recommended that the patient be admitted to the hospital for heparin anticoagulation treatment out of concern for possible PE. Pulmonology and FINANCIAL ANALYSIS CONSULTANT have been consulted. Dr. De La Cruz has accepted hospital admission. Patient agrees with this plan. Patient was treated with IV monoclonal antibodies in the ED, but please note that the patient is not being admitted for Covid pneumonia, and is rather being admitted for her tachycardia and possible pulmonary embolism. (Jorge Luis Rader) - Lab Data Lab Results 12/14/21 Range/Units 12:09 Coronavirus (PCR) Detected A (Not Detectd) - Radiology Data CT angiography chest with IV contrast: 1. Nondiagnostic for pulmonary arterial embolism due to bolus timing. 2. No central occlusive filling defect. Other filling defects seen, please note that pulmonary embolism cannot be excluded. 3. Nonspecific minimal scattered groundglass like opacities measuring up to 7 mm may be reflective of atelectasis changes, infectious or inflammation. 4. Small gastroesophageal hiatal hernia. (Jorge Luis Rader) Disposition <Boyd Neff - Last Filed: 12/14/21 15:02> Is patient prescribed a controlled substance at d/c from ED?: No Time of Disposition: 16:14 <Jorge Luis Rader - Last Filed: 12/14/21 17:18> Clinical Impression: Pneumonia due to COVID-19 virus, Tachycardia, Disposition: ADMITTED IP TO THIS HOSP Condition: Stable
[2021-12-14] MEDS ORDERED: SODIUM CHLORIDE 0.9% 50 ML IVPB ONE (14:00)
[2021-12-14] MEDS ORDERED: SOTROVIMAB (EUA) 500 MG in SODIUM CHLORIDE 0.9% 100 ML IVPB ONE (14:20)
--- NOTE | 2021-12-14 15:28 | CT ---
EXAMINATION TYPE: CT chest angio for PE DATE OF EXAM: 12/14/2021 COMPARISON: No prior CT comparison at our institution. HISTORY: covid, high heart rate TECHNIQUE: CT scan of the chest performed with contrast pulmonary embolism protocol. 80 mL of Isovue-370 was use d for the study. CT DLP: 519.6 mGycm Automated exposure control for dose reduction was used. FINDINGS: Opacification of the pulmonary trunk is 207 Hounsfield units which is considered nondiagnostic for pu lmonary arterial embolism. Within the limitations of the study, I do not see a central completely occ lusive filling defect. The pulmonary artery diameter is 2.6 cm. Intrathoracic aorta has a 3 vessel configuration and is joss neurysmal. There is a groundglass like opacity measuring 5 mm in the left upper lobe. There is a 5 mm opacity in the left lower lobe. Groundglass like opacities measuring 7 mm in the right lower lobe. No lung mass is seen. No focal airspace opacity, pneumothorax or pleural effusion. The heart is normal in size and there is no pericardial effusion. The tracheobronchial tree is patent. No hilar, mediastinal or axillary lymphadenopathy seen. There is a small gastroesophageal hiatal hernia. No significant osseous or soft tissue abnormalities seen. IMPRESSION: 1. NONDIAGNOSTIC FOR PULMONARY ARTERIAL EMBOLISM DUE TO BOLUS TIMING. 2. NO CENTRAL OCCLUSIVE FILLING DEFECT. OTHER FILLING DEFECTS SEEN, PLEASE NOTE THAT PULMONARY EMBOLI SM CANNOT BE EXCLUDED. 3. NONSPECIFIC MINIMAL SCATTERED GROUNDGLASS LIKE OPACITIES MEASURING UP TO 7 MM MAY BE REFLECTIVE OF ATELECTATIC CHANGES, INFECTIOUS OR INFLAMMATION. 4. SMALL GASTROESOPHAGEAL HIATAL HERNIA.
[2021-12-14] MEDS ORDERED: HEPARIN SODIUM 1,000 UN/ML (10ML VL) IV ONE (16:14)
[2021-12-14] MEDS ORDERED: HEPARIN SODIUM 1,000 UN/ML (10ML VL) IV PRN (16:14)
[2021-12-14] MEDS ORDERED: HEPARIN SOD,PORK IN 0.45% NACL 25,000 UNIT in 0.45% NACL 1 250ML.BAG IV SCH (16:15)
[2021-12-14 16:40] LABS: Basophils % (A) 0 %; Eosinophils # (A) 0.1 k/uL (0-0.7); Eosinophils % (A) 1 %; HCT 37.8 % (34.0-46.0); HGB 12.8 gm/dL (11.4-16.0); Lymphocytes # (A) 0.3 k/uL (1.0-4.8); Lymphocytes % (A) 4 %; MCH 32.5 pg (25.0-35.0); MCHC 33.9 g/dL (31.0-37.0); MCV 95.9 fL (80.0-100.0); Mean Platelet Volume 7.5; Monocytes # (A) 0.4 k/uL (0-1.0); Monocytes % (A) 5 %; Neutrophils # (A) 7.4 k/uL (1.3-7.7); Neutrophils % (A) 89 %; Platelet Count 253 k/uL (150-450); RBC 3.94 m/uL (3.80-5.40); WBC 8.3 k/uL (3.8-10.6)
[2021-12-14 16:54] LABS: ALT 19 U/L (4-34); AST 41 U/L (14-36); African American GFR (CKD) >90 (>60 ml/min/1.73 sqM); Albumin 3.8 g/dL (3.5-5.0); Alkaline Phosphatase 131 U/L (38-126); Anion Gap 9 mmol/L; Blood Urea Nitrogen 3 mg/dL (7-17); Calcium 9.1 mg/dL (8.4-10.2); Carbon Dioxide 18 mmol/L (22-30); Chloride 104 mmol/L (98-107); Glucose 79 mg/dL (74-99); Non-African American GFR(CKD) >90 (>60 ml/min/1.73 sqM); Sodium 131 mmol/L (137-145); Total Bilirubin 0.7 mg/dL (0.2-1.3); Total Protein 7.2 g/dL (6.3-8.2)
[2021-12-14 16:57] LABS: Potassium 4.2 mmol/L (3.5-5.1)
[2021-12-14] MEDS ORDERED: ACETAMINOPHEN TAB 500 MG TAB PO STA (17:03)
[2021-12-14 17:10] LABS: INR 0.9 (<1.2); Prothrombin Time 9.8 sec (9.0-12.0)
[2021-12-14 19:33] VITALS: PULSE 115
--- NOTE | 2021-12-14 21:54 | HP ---
HISTORY AND PHYSICAL DATE OF SERVICE: 12/14/2021 HISTORY OF PRESENT ILLNESS: This 21-year-old woman with a past medical history of vertigo and no other significant medical issues, not being followed by a primary physician in the outpatient setting, is following with , her TECHNOLOGIST DEVELOPMENT. Patient is 35 weeks' . The patient has not taken the COVID vaccine, but the patient was exposed to COVID-19 infection. The patient is having multiple symptoms, including shortness of breath, cough, congestion and body aches, and the patient came to [facility] and was admitted for evaluation and treatment. The patient is COVID-19 positive and the lab evaluation showed lymphopenia and multiple other abnormalities, including elevated D-dimer. The patient underwent a CT angio of the chest because of the report. CT angio was nondiagnostic because of bolus timing and the CT angio was reviewed personally by me and showed nonspecific scattered ground-glass opacities. The patient was admitted for further evaluation and treatment. There is no history of any rigors or chills at this time. Patient was found to be tachycardic. Pulse ox is well maintained. PAST MEDICAL HISTORY: History of vertigo. HOME MEDICATIONS: Tylenol p.r.n. ALLERGIES: NONE. FAMILY HISTORY: No history of heart disease or strokes in the family. SOCIAL HISTORY: No history of smoking. No history of alcohol intake. REVIEW OF SYSTEMS: ENT: No diminished hearing. No diminished vision. CARDIOVASCULAR SYSTEM: As mentioned earlier. RESPIRATORY SYSTEM: As mentioned earlier. GI: No nausea, vomiting, diarrhea. : As mentioned earlier. NERVOUS SYSTEM: No numbness, weakness. ALLERGY/IMMUNOLOGY: No asthma or hay fever. MUSCULOSKELETAL: As mentioned earlier. HEMATOLOGY/ONCOLOGY: No history of anemia. ENDOCRINE: No history of diabetes or hypothyroidism. CONSTITUTIONAL: As mentioned earlier. DERMATOLOGY: Negative. RHEUMATOLOGY: Negative. PSYCHIATRY: As mentioned earlier. PHYSICAL EXAMINATION: Patient is alert and oriented x3. Pulse is 110, blood pressure 143/80, respiration 18, temperature 98.6, pulse ox 100% on room air. HEENT: Conjunctivae normal. NECK: No jugular venous distention. CARDIOVASCULAR: S1, S2 muffled. RESPIRATION: Breath sounds diminished at the bases. No rhonchi. No crackles. ABDOMEN: Soft. at 35 weeks. LEGS: No edema. No swelling. NERVOUS SYSTEM: No focal deficit. SKIN: No ulcer, rash, bleeding. LABS: CBC lymphopenia 0.3. D-dimer 1.34. Sodium 131. ASSESSMENT: 1. Acute COVID-19 infection with possible early pneumonia. 2. Elevated D-dimer with nondiagnostic CT angio. 3. Hyponatremia. 4. Lymphopenia. 5. Thirty-five weeks . 6. Increased AST. 7. Increased alkaline phosphatase. 8. History of vertigo. 9. FULL CODE. RECOMMENDATIONS AND DISCUSSION: In this 21-year-old woman who presented with multiple medical issues, at this time I recommend to continue current medications, continue symptomatic treatment. Recommend initiating IV heparin. Will consult Dr. Pina and TECHNOLOGIST DEVELOPMENT. Continue to monitor. The patient will be transferred to [address] [place] [address] with telemetry; however, the patient is apparently a high-risk TECHNOLOGIST DEVELOPMENT case, so for that reason, the rn field case manager is also evaluating the possibility of transferring the patient elsewhere where a close eye is kept on high-risk TECHNOLOGIST DEVELOPMENT cases. Guarded prognosis because of multiple complex medical issues. Further recommendations to follow. I also recommend that the patient follow up with a primary physician closely after discharge. MMODL / IJN: [id number] / MTDD
--- NOTE | 2021-12-14 22:40 | P.OBCN ---
History of Present Illness Consult date: 12/14/21 Reason for consult: other ( complicated by Covid and pulmonary embolism) Chief complaint: Covid, shortness of breath, History of present illness: Please see dictated emergency room history and physical and progress notes. In brief summary this is a pleasant 21-year-old 1 para 0 female estimated date of confinement 01/16/2022 estimated gestational age 35-2/7 weeks who called the office 1-2 days ago with complaints of respiratory problems and exposure to family members with Covid. Patient at that time was recommended to come in for IV antibody therapy, however she declined. Patient called today that her symptomatology was getting worse and she was instructed to go to the emergency department for evaluation and treatment. Patient's Covid test was positive. Patient is having significant respiratory symptoms shortness of breath and therefore due to the and laboratory results it was felt best to proceed with evaluation of a pulmonary embolism. Patient subsequently had a chest CT which was indeterminate. I was contacted by the emergency department at this time and it was my recommendations to discuss with pulmonary/cheese packer for recommendations to treat. Patient has subsequently been placed on a heparin drip and is currently being monitored in the holding area in the emergency department. heart tones are category 1 and patient is having lots of movement. She denies vaginal bleeding and/or contractions. Review of Systems Constitutional: Reports as per HPI Genitourinary: Reports Menstruation: Reports amenorrhea Past Medical History Past Medical History: No Reported History Additional Past Medical History / Comment(s): vertigo History of Any Multi-Drug Resistant Organisms: None Reported Past Surgical History: No Surgical Hx Reported Past Anesthesia/Blood Transfusion Reactions: No Reported Reaction Past Psychological History: No Psychological Hx Reported Smoking Status: Never smoker Past Alcohol Use History: None Reported Past Drug Use History: None Reported Medications and Allergies Home Medications Medication Instructions Recorded Confirmed Type Acetaminophen Tab [Tylenol] 1,000 mg PO Q4-6H PRN 02/18/21 12/14/21 History Preplus 27-1 Mg 1 tab PO DAILY 12/14/21 12/14/21 History Allergies Allergy/AdvReac Type Severity Reaction Status Date / Time No Known Allergies Allergy Verified 12/14/21 15:49 Exam Vital Signs Temp Pulse Resp BP Pulse Ox 12/14/21 19:31 98.7 F 115 H 19 109/52 99 12/14/21 13:04 98.6 F 122 H 18 143/83 100 Intake and Output 12/14/21 12/14/21 12/14/21 06:59 14:59 22:59 Other: Weight 104.326 kg Results Patient is B positive. She's had normal anatomy ultrasound. Patient's had normal glucose testing. TDap was given on November 05 Result Diagrams: 12/14/21 16:24 12/14/21 16:24 Abnormal Lab Results - Last 24 Hours (Table) 12/14/21 12/14/21 12/14/21 Range/Units 12:09 16:24 16:24 Lymphocytes # 0.3 L (1.0-4.8) k/uL D-Dimer 1.34 H (<0.60) mg/L FEU Sodium (137-145) mmol/L Carbon Dioxide (22-30) mmol/L BUN (7-17) mg/dL Creatinine (0.52-1.04) mg/dL AST (14-36) U/L Alkaline Phosphatase (38-126) U/L Coronavirus (PCR) Detected A (Not Detectd) 12/14/21 Range/Units 16:24 Lymphocytes # (1.0-4.8) k/uL D-Dimer (<0.60) mg/L FEU Sodium 131 L (137-145) mmol/L Carbon Dioxide 18 L (22-30) mmol/L BUN 3 L (7-17) mg/dL Creatinine 0.36 L (0.52-1.04) mg/dL AST 41 H (14-36) U/L Alkaline Phosphatase 131 H (38-126) U/L Coronavirus (PCR) (Not Detectd) Assessment and Plan Assessment: This is a pleasant 21-year-old 1 para 0 female 35-2/7 weeks gestation who is admitted with Covid pneumonia and presumed pulmonary embolism. Unfortunately the chest CT was indeterminate however given the patient's symptomatology and risk factors is prudent to assume that she does have a pulmonary embolism. Patient is currently being treated with IV heparin drip. Patient will have continuous monitoring overnight. There is a possibility that patient will be transferred because we are unable to monitor the patient with telemetry on the obstetrical unit. In the event this patient is unable to be transferred we'll reevaluate in the morning for intermittent nonstress testing. At this time there is no evidence of compromise. (1) 35 to 36 weeks gestation of Current Visit: Yes Status: Acute Code(s): CQU0372 - SNOMED Code(s): 154365015 (2) Pulmonary embolism affecting in third trimester Current Visit: Yes Status: Acute Code(s): O88.213 - THROMBOEMBOLISM IN , THIRD TRIMESTER SNOMED Code(s): 106750106 (3) Pneumonia due to COVID-19 virus Current Visit: Yes Status: Acute Code(s): U07.1 - COVID-19; J12.82 - PNEUMONIA DUE TO CORONAVIRUS DISEASE 2018 SNOMED Code(s): 631830747165511604
[2021-12-15] MEDS ORDERED: ACETAMINOPHEN TAB 500 MG TAB PO STA (00:21)
[2021-12-15 00:34] VITALS: BP 120/69; RESP 16; TEMP 98.9
[2021-12-15 13:27] LABS: Ferritin 73.8 ng/mL (10.0-291.0)
--- NOTE | 2021-12-16 20:32 | DS ---
DISCHARGE SUMMARY FINAL DIAGNOSES: 1. Acute COVID-19 infection with possible early pneumonia. 2. Elevated D-dimer with nondiagnostic CT angio. 3. Hyponatremia. 4. Lymphopenia. 5. [id number] . 6. Increased AST. 7. Increased alkaline phosphatase. 8. History of vertigo. 9. FULL CODE. DISCHARGE DISPOSITION: The patient will be transferred [place] [facility] [place] for high-risk . HISTORY OF PRESENT ILLNESS: This is a 21-year-old woman with a past medical history of multiple medical problems was admitted with COVID-19 infection and some pneumonia. The patient was closely monitored. The patient was found to have high-risk and LOCKSTITCH SLEEVE SETTER recommended transfer. I discussed the case with the [facility]OCKSTITCH SLEEVE SETTER team and the patient will be transferred to [facility] [place] further evaluation and treatment. The prognosis was extremely guarded throughout the hospital stay. Please refer to the multiple progress notes and labs and other notes for further information. MMODL / IJN: [id number] /
== END 2021-12-15 00:27 | disposition critical access hospital (66) | DRG 831 ==
LOC: EC 13:01 → 4SSUR 16:15 → 4FBP 17:21 → 3SCARD 18:48
PROVIDERS: ADMIT Hospitalist; ATTEND Hospitalist
PROC: XW033H6 Introduction of Other New Technology Monoclonal Antibody into Peripheral Vein, Percutaneous Approach, New Technology Group 6 (ICD-10-PCS; principal; 2021-12-14)
PROC: 4A0HXCZ Measurement of Products of Conception, Cardiac Rate, External Approach (ICD-10-PCS; 2021-12-14)
DX: O98.513 Other viral diseases complicating pregnancy, third trimester (principal); U07.1 COVID-19; J12.82 Pneumonia due to coronavirus disease 2019; I26.99 Other pulmonary embolism without acute cor pulmonale; O88.813 Other embolism in pregnancy, third trimester; O99.113 Other diseases of the blood and blood-forming organs and certain disorders involving the immune mechanism complicating pregnancy, third trimester; E87.1 Hypo-osmolality and hyponatremia; O99.413 Diseases of the circulatory system complicating pregnancy, third trimester; O99.613 Diseases of the digestive system complicating pregnancy, third trimester; K44.9 Diaphragmatic hernia without obstruction or gangrene; R00.0 Tachycardia, unspecified; Z3A.35 35 weeks gestation of pregnancy; O99.283 Endocrine, nutritional and metabolic diseases complicating pregnancy, third trimester; O99.513 Diseases of the respiratory system complicating pregnancy, third trimester; O21.2 Late vomiting of pregnancy; D72.810 Lymphocytopenia
CPT/HCPCS: 36415; 71275; 80053; 82728; 83615; 83880; 84484; 85025; 85379; 85610; 85652; 85730; 86140; 87635; 93005; 99285

== ENCOUNTER 2021-12-20 17:50 | Emergency (ER) | payer OTHER ==
[2021-12-20 18:04] VITALS: BP 149/79; PULSE 88; RESP 20; TEMP 97.8
[2021-12-20] MEDS ORDERED: SODIUM CHLORIDE 0.9% 1,000 ML IV STA (18:46)
--- NOTE | 2021-12-20 19:01 | ED ---
General Adult HPI - General Chief complaint: Dizziness Stated complaint: 36 wks preg/covid+/sob/light headed Time Seen by Provider: 12/20/21 18:45 Source: patient Mode of arrival: ambulatory Limitations: no limitations - History of Present Illness Initial comments: This 21-year-old female was 36 weeks presents emergency Department with 2 episodes of lightheadedness that happened earlier today. Patient states she felt lightheaded for 3-5 minutes at noon and 4:00 PM that lasted a short time and then resolved on its own. Patient states during that time she also felt slightly short of breath, however that resolved when her lightheadedness re solved. Patient states over the last few days she has not been drinking as much water as she should. She states she does still feel the baby move as usual. She denies any vaginal bleeding or discharge. Patient denies any chest pain, abdominal pain, nausea, vomiting, change in bowel or bladder, headache, change in vision. Patient states she was here on December 14 and was diagnosed with COVID-19. She states she received a CTA of her chest due to an elevated d-dimer and then was sent to [facility] at the [facility] [place]. She states she was observed there for one day and was discharged the following day. Patient states that she was discharged from the [facility] she has not had any issues or complaints until she had her 2 episodes of lightheadedness today and came in to be assessed. She states she is currently not lightheaded or short of breath at this time. - Related Data Home Medications Medication Instructions Recorded Confirmed Acetaminophen Tab [Tylenol] 1,000 mg PO Q4-6H PRN 02/18/21 12/20/21 Preplus 27-1 Mg 1 tab PO DAILY 12/14/21 12/20/21 Allergies Allergy/AdvReac Type Severity Reaction Status Date / Time No Known Allergies Allergy Verified 12/20/21 18:55 Review of Systems ROS Statement: Those systems with pertinent positive or pertinent negative responses have been documented in the HPI. ROS Other: All systems not noted in ROS Statement are negative. Past Medical History Past Medical History: No Reported History Additional Past Medical History / Comment(s): vertigo History of Any Multi-Drug Resistant Organisms: None Reported Past Surgical History: No Surgical Hx Reported Past Anesthesia/Blood Transfusion Reactions: No Reported Reaction Past Psychological History: No Psychological Hx Reported Smoking Status: Never smoker Past Alcohol Use History: None Reported Past Drug Use History: None Reported General Exam Limitations: no limitations General appearance: alert, in no apparent distress Head exam: Present: atraumatic, normocephalic Eye exam: Present: normal appearance, EOMI ENT exam: Present: normal exam, mucous membranes moist Neck exam: Present: normal inspection, full ROM Respiratory exam: Present: normal lung sounds bilaterally. Absent: respiratory distress, wheezes, rales, rhonchi, stridor Cardiovascular Exam: Present: regular rate, normal rhythm, normal heart sounds. Absent: systolic murmur, diastolic murmur, rubs, gallop, clicks GI/Abdominal exam: Present: soft, normal bowel sounds. Absent: distended, tenderness, guarding, rebound, rigid Extremities exam: Present: full ROM. Absent: tenderness, normal capillary refill, pedal edema, joint swelling, calf tenderness Back exam: Present: full ROM. Absent: tenderness, CVA tenderness (R), CVA tenderness (L), paraspinal tenderness, vertebral tenderness Neurological exam: Present: alert, oriented X3, CN II-XII intact, normal gait Psychiatric exam: Present: normal affect, normal mood Skin exam: Present: warm, dry, intact, normal color. Absent: rash Course Vital Signs 12/20/21 18:01 Temperature 97.8 F Pulse Rate 88 Respiratory 20 Rate Blood Pressure 149/79 O2 Sat by Pulse 97 Oximetry - Reevaluation(s) Reevaluation #1: 12/20/21 21:57 Patient states she feels fine and has no complaints of chest pain, shortness of breath, dizziness, lightheadedness, nausea or vomiting at this time. Medical Decision Making - Medical Decision Making This 21-year-old female who is 36 weeks presents to emergency department for 2 episodes of lightheadedness earlier in the day. Patient states she feels good and has no complaints after receiving fluids. CBC and BMP unremarkable. Troponin less than 0.012, C-reactive protein 0.5. Patient states she is not currently lightheaded or short of breath. Patient was seen by Kala Little from OB for heart tones. FHTs at 130s and right mid quadrant via Doppler. There is less than 2 for 1 minute. Maternal pulse verified separate from heart tones via palpation of radial pulse. Patient to be discharged to follow up with her [facility] in next 24-48 hours. Patient sent upstairs to be observed and monitored on the mother/baby unit. Patient verbally agreed to plan. Strict return precautions were given. Patient sent in stable condition. Case discussed with my attending, Dr. Bhagat. - Lab Data Result diagrams: 12/20/21 19:05 12/20/21 19:05 Lab Results 12/20/21 12/20/21 12/20/21 Range/Units 19:05 19:05 19:05 WBC 10.0 (3.8-10.6) k/uL RBC 4.04 (3.80-5.40) m/uL Hgb 13.2 (11.4-16.0) gm/dL Hct 39.4 (34.0-46.0) % MCV 97.6 (80.0-100.0) fL MCH 32.6 (25.0-35.0) pg MCHC 33.4 (31.0-37.0) g/dL RDW 13.4 (11.5-15.5) % Plt Count 356 (150-450) k/uL MPV 7.1 Neutrophils % 72 % Lymphocytes % 22 % Monocytes % 3 % Eosinophils % 2 % Basophils % 0 % Neutrophils # 7.2 (1.3-7.7) k/uL Lymphocytes # 2.2 (1.0-4.8) k/uL Monocytes # 0.3 (0-1.0) k/uL Eosinophils # 0.2 (0-0.7) k/uL Basophils # 0.0 (0-0.2) k/uL ESR Cancelled Sodium 134 L (137-145) mmol/L Potassium 3.8 (3.5-5.1) mmol/L Chloride 105 (98-107) mmol/L Carbon Dioxide 19 L (22-30) mmol/L Anion Gap 10 mmol/L BUN 7 (7-17) mg/dL Creatinine 0.41 L (0.52-1.04) mg/dL Est GFR (CKD-EPI)AfAm >90 (>60 ml/min/1.73 sqM) Est GFR (CKD-EPI)NonAf >90 (>60 ml/min/1.73 sqM) Glucose 97 (74-99) mg/dL Calcium 9.4 (8.4-10.2) mg/dL Total Bilirubin 0.3 (0.2-1.3) mg/dL AST 21 (14-36) U/L ALT 16 (4-34) U/L Alkaline Phosphatase 137 H (38-126) U/L CK-MB (CK-2) 0.7 (0.0-2.4) ng/mL Troponin I <0.012 (0.000-0.034) ng/mL C-Reactive Protein 0.5 (<1.0) mg/dL Total Protein 7.1 (6.3-8.2) g/dL Albumin 3.7 (3.5-5.0) g/dL Disposition Clinical Impression: Dehydration during , COVID-19 Disposition: HOME SELF-CARE Condition: Stable Instructions (If sedation given, give patient instructions): Dehydration (ED), Coronavirus Disease 2019 (COVID-19) Additional Instructions: Please return to the emergency department with any concerning, new, or worsening symptoms. Follow-up with your [facility] the next 24-48 hours. Please go upstairs to mother/baby unit for observation immediately after being discharged from the emergency department. Follow-up with primary care provider next 24-48 hours. Is patient prescribed a controlled substance at d/c from ED?: No Referrals: None,Stated [Primary Care Provider] - 1-2 days Time of Disposition: 22:02
[2021-12-20 19:12] LABS: Basophils % (A) 0 %; Eosinophils # (A) 0.2 k/uL (0-0.7); Eosinophils % (A) 2 %; HCT 39.4 % (34.0-46.0); HGB 13.2 gm/dL (11.4-16.0); Lymphocytes # (A) 2.2 k/uL (1.0-4.8); Lymphocytes % (A) 22 %; MCH 32.6 pg (25.0-35.0); MCHC 33.4 g/dL (31.0-37.0); MCV 97.6 fL (80.0-100.0); Mean Platelet Volume 7.1; Monocytes # (A) 0.3 k/uL (0-1.0); Monocytes % (A) 3 %; Neutrophils # (A) 7.2 k/uL (1.3-7.7); Neutrophils % (A) 72 %; Platelet Count 356 k/uL (150-450); RBC 4.04 m/uL (3.80-5.40); RDW 13.4 % (11.5-15.5)
[2021-12-20 19:24] LABS: ALT 16 U/L (4-34); AST 21 U/L (14-36); African American GFR (CKD) >90 (>60 ml/min/1.73 sqM); Albumin 3.7 g/dL (3.5-5.0); Alkaline Phosphatase 137 U/L (38-126); Anion Gap 10 mmol/L; Blood Urea Nitrogen 7 mg/dL (7-17); C Reactive Protein 0.5 mg/dL (<1.0); Calcium 9.4 mg/dL (8.4-10.2); Carbon Dioxide 19 mmol/L (22-30); Chloride 105 mmol/L (98-107); Glucose 97 mg/dL (74-99); Non-African American GFR(CKD) >90 (>60 ml/min/1.73 sqM); Potassium 3.8 mmol/L (3.5-5.1); Sodium 134 mmol/L (137-145); Total Bilirubin 0.3 mg/dL (0.2-1.3); Total Protein 7.1 g/dL (6.3-8.2)
[2021-12-20 19:33] LABS: Creatine Kinase MB 0.7 ng/mL (0.0-2.4); Troponin I <0.012 ng/mL (0.000-0.034)
[2021-12-20 22:20] LABS: Appearance,Urine Cloudy (Clear); Bacteria,Urine Rare /hpf; Bilirubin,Urine Negative (Negative); Blood,Urine Negative (Negative); Color,Urine Yellow; Glucose,Urine (UA) Negative (Negative); Ketones,Urine 1+ (Negative); Leukocyte Esterase,Urine Trace (Negative); Mucus,Urine Occasional /hpf; Nitrite,Urine Negative (Negative); PH, Urine 6.5 (5.0-8.0); Protein,Urine Trace (Negative); RBC,Urine 1 /hpf (0-5); Specific Gravity,Urine 1.023 (1.001-1.035); Squamous Epithelial Cell,Urine 8 /hpf (0-4); Urobilinogen,Urine <2.0 mg/dL (<2.0); WBC,Urine 2 /hpf (0-5)
== END 2021-12-20 22:43 | disposition home or self-care (01) ==
LOC: EC 17:50
DX: O98.513 Other viral diseases complicating pregnancy, third trimester (principal); U07.1 COVID-19; O99.283 Endocrine, nutritional and metabolic diseases complicating pregnancy, third trimester; E86.0 Dehydration; Z3A.36 36 weeks gestation of pregnancy
CPT/HCPCS: 36415; 80053; 81001; 82553; 84484; 85025; 86140; 99284

== ENCOUNTER 2021-12-20 23:01 | Outpatient (CLI) | payer OTHER ==
[2021-12-20 23:56] VITALS: BP 131/72; PULSE 83; RESP 16; TEMP 96.9
--- NOTE | 2022-01-02 11:54 | P.MSEPDOC ---
Presenting Problems - Arrival Data Date of Arrival on Unit: 12/20/21 Time of Arrival on Unit: 23:01 Mode of Transport: Wheelchair - Complaint OB-Reason for Admission/Chief Complaint: Other Comment: seen in ER for lightheadedness, COVID+, no complaints Medical History - Information : 1 Para: 0 Term: 0 : 0 Abortions: Spontaneous or Elective: 0 Number of Living Children: 0 - Gestational Age Gestational Age by MYLES (wks/days): 36 Weeks and 1 Days Review of Systems - Review of Systems Constitutional: No problems Breast: No problems ENT: No problems Cardiovascular: No problems Respiratory: No problems Gastrointestinal: No problems Genitourinary: No problems Musculoskeletal: No problems Neurological: No problems Skin: No problems Vital Signs - Temperature Temperature: 96.9 F Temperature Source: Temporal Artery Scan - Pulse Pulse Oximetery Pulse Rate: 83 Pulse Assessment Method: Pulse Oximetry - Respirations Respiratory Rate: 16 Oxygen Delivery Method: Room Air O2 Sat by Pulse Oximetry: 99 - Blood Pressure Right Arm Blood Pressure: 131/72 Blood Pressure Mean: 91 Blood Pressure Source: Automatic Cuff Medical Screen Scoring - Assessment - Baby A Baseline FHR: 125 Heart Rate - NICHD Category: Category I (Normal) NST: Reactive Physician Notification - Physician Notified Physician Notified Date: 12/20/21 Physician Notified Time: 23:20 Physician: Rashida Terrazas New Order Received: Yes - Notification Comment Comment: Dr. Terrazas called, report given on maternal and status, pt seen in ER. tonight for lightheadedness after testing positive for COVID on 12/14/21. Pt sent up by. ER and has no complaints. NST is reactive. Orders to discharge pt home. Maternal Triage Index - Maternal Triage Index Presenting for scheduled procedure w/no complaint: No - Stat/Priority 1 Stat Priority 1: No - Urgent/Priority 2 Urgent Priority 2: No - Prompt/Priority 3 Prompt Priority 3: No - Non-Urgent/Priority 4 Non-Urgent Priority 4: Yes Criteria Met for Priority 4: Seen in ER for lightheadedness, COVID +, no complaints, 36 1/7 weeks Disposition - Disposition OB Disposition: Discharge to home Discharge Date: 12/20/21 Discharge Time: 23:30 I agree with the RN Medical Screening Exam: Yes Case reviewed; plan agreed upon as documented in EMR&OBIX.: Yes Diagnosis: COVID-19
== END 2021-12-20 23:30 | disposition home or self-care (01) ==
LOC: FBPOP 23:01
PROVIDERS: ATTEND Obstetrics & Gynecology
DX: O98.513 Other viral diseases complicating pregnancy, third trimester (principal); U07.1 COVID-19; Z3A.36 36 weeks gestation of pregnancy
CPT/HCPCS: 59025; G0463; 99213

== ENCOUNTER 2021-12-26 12:10 | Outpatient (CLI) | payer OTHER ==
[2021-12-26 13:25] LABS: Basophils % (A) 0 %; Eosinophils % (A) 0 %; HCT 35.6 % (34.0-46.0); HGB 11.9 gm/dL (11.4-16.0); Lymphocytes # (A) 1.1 k/uL (1.0-4.8); Lymphocytes % (A) 10 %; MCH 32.4 pg (25.0-35.0); MCHC 33.4 g/dL (31.0-37.0); MCV 96.9 fL (80.0-100.0); Mean Platelet Volume 7.2; Monocytes # (A) 0.4 k/uL (0-1.0); Monocytes % (A) 3 %; Neutrophils # (A) 9.7 k/uL (1.3-7.7); Neutrophils % (A) 86 %; Platelet Count 339 k/uL (150-450); RBC 3.67 m/uL (3.80-5.40); RDW 12.9 % (11.5-15.5); WBC 11.3 k/uL (3.8-10.6)
[2021-12-26 13:26] LABS: Appearance,Urine Clear (Clear); Bacteria,Urine Occasional /hpf; Bilirubin,Urine Negative (Negative); Blood,Urine Negative (Negative); Color,Urine Light Yellow; Glucose,Urine (UA) Negative (Negative); Ketones,Urine Negative (Negative); Leukocyte Esterase,Urine Trace (Negative); Mucus,Urine Rare /hpf; Nitrite,Urine Negative (Negative); Protein,Urine Negative (Negative); Specific Gravity,Urine 1.003 (1.001-1.035); Squamous Epithelial Cell,Urine 2 /hpf (0-4); Urobilinogen,Urine <2.0 mg/dL (<2.0); WBC,Urine 1 /hpf (0-5)
[2021-12-26 13:30] LABS: Creatinine,Urine Random 22.8 mg/dL
[2021-12-26 13:31] LABS: Creatinine,Urine Random 22.1 mg/dL; Protein/Creatinine Ratio,Urine 0.679
[2021-12-26 13:35] LABS: ALT 38 U/L (4-34); AST 89 U/L (14-36); African American GFR (CKD) >90 (>60 ml/min/1.73 sqM); Blood Urea Nitrogen 3 mg/dL (7-17); LDH 458 U/L (313-618); Non-African American GFR(CKD) >90 (>60 ml/min/1.73 sqM); Uric Acid 2.7 mg/dL (3.7-7.4)
[2021-12-26 14:13] VITALS: BP 131/72; PULSE 83; RESP 16; TEMP 96.9
--- NOTE | 2021-12-26 20:47 | P.MSEPDOC ---
Presenting Problems - Arrival Data Date of Arrival on Unit: 12/26/21 Time of Arrival on Unit: 12:10 Mode of Transport: Ambulatory - Complaint OB-Reason for Admission/Chief Complaint: Dizziness Medical History - Information : 1 Para: 0 Term: 0 : 0 Abortions: Spontaneous or Elective: 0 Number of Living Children: 0 - Gestational Age Gestational Age by MYLES (wks/days): 37 Weeks and 0 Days Review of Systems - Review of Systems Constitutional: No problems Breast: No problems ENT: No problems Cardiovascular: No problems Respiratory: No problems Gastrointestinal: No problems Genitourinary: No problems Musculoskeletal: No problems Neurological: Dizziness Skin: No problems Vital Signs - Temperature Temperature: 96.9 F Temperature Source: Temporal Artery Scan - Pulse Right Sitting Brachial Pulse Rate: 83 Pulse Assessment Method: Automatic Cuff - Respirations Respiratory Rate: 16 Oxygen Delivery Method: Room Air O2 Sat by Pulse Oximetry: 99 - Blood Pressure Right Arm Sitting Blood Pressure: 131/72 Blood Pressure Mean: 91 Blood Pressure Source: Automatic Cuff Medical Screen Scoring - Cervical Exam Dilation (cm): 1 Station: -2 Membranes: Intact - Uterine Contractions Resting: Soft to palpation - Assessment - Baby A Baseline FHR: 140 Heart Rate - NICHD Category: Category I (Normal) Physician Notification - Physician Notified Physician Notified Date: 12/26/21 Physician Notified Time: 13:55 Physician: Diane Mills Order Received: Yes (discharge home) Maternal Triage Index - Maternal Triage Index Presenting for scheduled procedure w/no complaint: No - Stat/Priority 1 Stat Priority 1: No - Urgent/Priority 2 Urgent Priority 2: No - Prompt/Priority 3 Prompt Priority 3: No - Non-Urgent/Priority 4 Non-Urgent Priority 4: Yes Criteria Met for Priority 4: light headedness, dizzy Disposition - Disposition OB Disposition: Discharge to home, Written follow up instructions reviewed Discharge Date: 12/26/21 Discharge Time: 02:10 I agree with the RN Medical Screening Exam: Yes Case reviewed; plan agreed upon as documented in EMR&OBIX.: Yes Diagnosis: HEARTBURN
== END 2021-12-26 14:10 | disposition home or self-care (01) ==
LOC: FBPOP 12:10
PROVIDERS: ATTEND Obstetrics & Gynecology
DX: O26.893 Other specified pregnancy related conditions, third trimester (principal); R12 Heartburn; Z3A.37 37 weeks gestation of pregnancy
CPT/HCPCS: 59025; 82570; 84156; 82565; 83615; 84450; 84460; 84520; 84550; 85025; 81001; G0463; 99213

== ENCOUNTER 2022-01-01 11:16 | Outpatient (CLI) | payer OTHER ==
[2022-01-01 11:49] VITALS: BP 130/60; PULSE 80; RESP 16; TEMP 96.7
[2022-01-01 12:01] LABS: Basophils % (A) 0 %; Eosinophils # (A) 0.1 k/uL (0-0.7); Eosinophils % (A) 1 %; HCT 35.5 % (34.0-46.0); Lymphocytes # (A) 1.6 k/uL (1.0-4.8); Lymphocytes % (A) 17 %; MCH 32.8 pg (25.0-35.0); MCHC 33.7 g/dL (31.0-37.0); MCV 97.4 fL (80.0-100.0); Mean Platelet Volume 7.2; Monocytes # (A) 0.3 k/uL (0-1.0); Monocytes % (A) 3 %; Neutrophils % (A) 77 %; Platelet Count 333 k/uL (150-450); RBC 3.64 m/uL (3.80-5.40); RDW 13.5 % (11.5-15.5); WBC 9.1 k/uL (3.8-10.6)
[2022-01-01 12:22] LABS: ALT 17 U/L (4-34); AST 22 U/L (14-36); African American GFR (CKD) >90 (>60 ml/min/1.73 sqM); Blood Urea Nitrogen 5 mg/dL (7-17); LDH 321 U/L (313-618); Non-African American GFR(CKD) >90 (>60 ml/min/1.73 sqM); Uric Acid 2.6 mg/dL (3.7-7.4)
[2022-01-01 12:28] LABS: Appearance,Urine Clear (Clear); Bacteria,Urine Rare /hpf; Bilirubin,Urine Negative (Negative); Blood,Urine Negative (Negative); Color,Urine Yellow; Glucose,Urine (UA) Negative (Negative); Ketones,Urine Negative (Negative); Leukocyte Esterase,Urine Small (Negative); Mucus,Urine Rare /hpf; Nitrite,Urine Negative (Negative); Protein,Urine Negative (Negative); Specific Gravity,Urine 1.014 (1.001-1.035); Squamous Epithelial Cell,Urine 4 /hpf (0-4); Urobilinogen,Urine <2.0 mg/dL (<2.0); WBC,Urine 2 /hpf (0-5)
[2022-01-01 12:29] LABS: Protein/Creatinine Ratio,Urine 0.103
--- NOTE | 2022-01-01 16:38 | P.MSEPDOC ---
Presenting Problems - Arrival Data Date of Arrival on Unit: 01/01/22 Time of Arrival on Unit: 11:16 Mode of Transport: Ambulatory - Complaint OB-Reason for Admission/Chief Complaint: Other Comment: elevated liver enzymes Medical History - Information : 1 Para: 0 Term: 0 : 0 Abortions: Spontaneous or Elective: 0 Number of Living Children: 0 - Gestational Age Gestational Age by MYLES (wks/days): 37 Weeks and 6 Days Review of Systems - Review of Systems Constitutional: No problems Breast: No problems ENT: No problems Cardiovascular: No problems Respiratory: No problems Gastrointestinal: No problems Genitourinary: No problems Musculoskeletal: No problems Neurological: No problems Skin: No problems Vital Signs - Temperature Temperature: 96.7 F Temperature Source: Temporal Artery Scan - Pulse Right Sitting Pulse Rate: 80 Pulse Assessment Method: Automatic Cuff - Respirations Respiratory Rate: 16 Oxygen Delivery Method: Room Air - Blood Pressure Right Arm Blood Pressure: 130/60 Blood Pressure Mean: 83 Blood Pressure Source: Automatic Cuff Medical Screen Scoring - Assessment - Baby A Baseline FHR: 135 NST: Reactive Physician Notification - Physician Notified Physician Notified Date: 01/01/22 Physician Notified Time: 12:38 Physician: Diane Mills Order Received: Yes (d/c home) Maternal Triage Index - Maternal Triage Index Presenting for scheduled procedure w/no complaint: Yes - Scheduled/Requesting Priority 5 Scheduled/Requesting Priority 5: Yes Criteria Met for Priority 5: BP 130/60, no s/sx preeclamplsia Disposition - Disposition OB Disposition: Discharge to home Discharge Date: 01/01/22 Discharge Time: 12:42 I agree with the RN Medical Screening Exam: Yes Case reviewed; plan agreed upon as documented in EMR&OBIX.: Yes Diagnosis: ABNORMAL LEVELS OF OTHER SERUM ENZYMES
== END 2022-01-01 12:42 | disposition home or self-care (01) ==
LOC: FBPOP 11:16
PROVIDERS: ATTEND Obstetrics & Gynecology
DX: O26.893 Other specified pregnancy related conditions, third trimester (principal); R74.8 Abnormal levels of other serum enzymes; Z3A.37 37 weeks gestation of pregnancy
CPT/HCPCS: 59025; 82570; 84156; 82565; 83615; 84450; 84460; 84520; 84550; 85025; 81001; G0463; 99215

== ENCOUNTER 2022-01-14 07:35 | Inpatient (IN) | payer OTHER ==
[2022-01-14] MEDS ORDERED: OXYTOCIN 10 UNIT/ML 1 ML VIAL IM PRN (08:28)
[2022-01-14] MEDS ORDERED: LIDOCAINE 1% (PF) 10 MG/ML (30 ML SDV) SQ PRN (08:28)
[2022-01-14] MEDS ORDERED: TERBUTALINE 1 MG/ML VIAL SQ PRN (08:28)
[2022-01-14] MEDS ORDERED: METHYLERGONOVINE 0.2 MG/ML 1 ML AMP IM PRN (08:28)
[2022-01-14] MEDS ORDERED: CARBOPROST TROMETHAMINE 250 MCG/ML 1 ML AMP IM PRN (08:28)
[2022-01-14] MEDS ORDERED: OXYTOCIN 30 UNITS/500 ML NS 30 UNIT in SALINE 1 500ML.BAG IV SCH ×2 (08:30→22:30)
--- NOTE | 2022-01-14 09:05 | P.HPOB ---
History of Present Illness H&P Date: 01/14/22 Chief Complaint: Spontaneous rupture of membranes This is a 21-year-old female 1 para 0 at 39-5/7 weeks with an estimated date of confinement of 01/16/2022, who presents to labor and delivery with complaints of spontaneous rupture membranes with clear fluid noted at 6:15 AM this morning. She is feeling some irregular contractions. course was complicated by Covid at approximately 35-36 weeks. She initially was thought to have a pulmonary embolism but was later determined that it was just pneumonia and she did not have a PE. She was transferred to [facility] at that time and was discharged shortly after. She did have some elevated liver enzymes but no elevated blood pressures. Repeat labs did show normalization of her liver enzymes. Growth has also been at around 10 to 25th percentile. Her last ultrasound showed estimated weight of 5 lbs. 8 oz. labs: GC chlamydia/trichomoniasis-negative Hepatitis B surface antigen-negative RPR-nonreactive Rubella-immune Blood type-be positive Antibody screen-negative HIV-nonreactive Hemoglobin-13.3 Random glucose-116 Obstetrical ultrasound-normal anatomy One hour Glucola-115 Group B streptococcus-negative Obstetrical history: This is her first Gynecologic history: She does have a history of Trichomonas treated a few minutes prior to . Social history: She is single. She works at a [employer] Review of Systems Constitutional: Denies chills, Denies fever Eyes: denies blurred vision, denies pain Ears, nose, mouth and throat: Denies headache, Denies sore throat Cardiovascular: Denies chest pain, Denies shortness of breath Respiratory: Denies cough Gastrointestinal: Reports abdominal pain (Contractions), Reports heartburn Genitourinary: Reports pelvic pain, Reports Musculoskeletal: Reports low back pain Integumentary: Denies pruritus, Denies rash Neurological: Denies numbness, Denies weakness Psychiatric: Denies anxiety, Denies depression Past Medical History Past Medical History: No Reported History Additional Past Medical History / Comment(s): vertigo History of Any Multi-Drug Resistant Organisms: None Reported Past Surgical History: No Surgical Hx Reported Past Anesthesia/Blood Transfusion Reactions: No Reported Reaction Past Psychological History: No Psychological Hx Reported Smoking Status: Never smoker Past Alcohol Use History: None Reported Past Drug Use History: None Reported - Past Family History Father Family Medical History: No Reported History Medications and Allergies Home Medications Medication Instructions Recorded Confirmed Type Pnv No.95/Ferrous Fum/Folic AC 1 each PO DAILY 12/20/21 01/14/22 History [ Multivitamin Tablet] Omeprazole Magnesium [PriLOSEC OTC] 20 mg PO DIRECTED 12/26/21 01/14/22 History Allergies Allergy/AdvReac Type Severity Reaction Status Date / Time No Known Allergies Allergy Verified 01/14/22 08:07 Exam Osteopathic Statement: *. No significant issues noted on an osteopathic structural exam other than those noted in the History and Physical/Consult. Vital Signs Temp Pulse Resp BP Pulse Ox 01/14/22 08:06 97.1 F L 98 18 120/71 98 Intake and Output 01/13/22 01/14/22 01/14/22 22:59 06:59 14:59 Other: Weight 104.326 kg HEENT: Within normal limits Heart: Regular rate and rhythm Lungs: Clear to auscultation bilaterally Abdomen: Cervix: 1-1/2 cm/60-70%/-2 station with clear fluid noted. heart tones: Reactive, category 1 Contractions: Every 3-5 minutes Extremities: Negative Homans Assessment and Plan (1) 39 weeks gestation of Current Visit: Yes Status: Acute Code(s): Z3A.39 - 39 WEEKS GESTATION OF SNOMED Code(s): 77849064 Plan: Admission for early active labor. Oxytocin augmentation of labor. Expectant management. Epidural anesthesia if desired.
[2022-01-14] MEDS: LACTATED RINGERS 1,000 ML IV SCH ×4 (09:26→19:20)
[2022-01-14 10:02] LABS: Basophils % (A) 0 %; Eosinophils # (A) 0.1 k/uL (0-0.7); Eosinophils % (A) 1 %; HCT 37.1 % (34.0-46.0); HGB 12.7 gm/dL (11.4-16.0); Lymphocytes # (A) 1.8 k/uL (1.0-4.8); Lymphocytes % (A) 17 %; MCH 32.8 pg (25.0-35.0); MCHC 34.3 g/dL (31.0-37.0); MCV 95.7 fL (80.0-100.0); Mean Platelet Volume 7.5; Monocytes # (A) 0.3 k/uL (0-1.0); Monocytes % (A) 3 %; Neutrophils # (A) 8.1 k/uL (1.3-7.7); Neutrophils % (A) 78 %; Platelet Count 324 k/uL (150-450); RBC 3.88 m/uL (3.80-5.40); RDW 13.6 % (11.5-15.5); WBC 10.4 k/uL (3.8-10.6)
[2022-01-14] MEDS ORDERED: fentaNYL (PF) 50 MCG/ML 5 ML AMP ONE (13:39)
[2022-01-14] MEDS ORDERED: SODIUM CHLORIDE 0.9% 100 ML BAG ONE (13:39)
[2022-01-14] MEDS ORDERED: ROPIVACAINE 5MG/ML 20ML VIAL ONE (13:39)
[2022-01-14] MEDS ORDERED: AMPICILLIN 2,000 MG in SODIUM CHLORIDE 0.9% 100 ML IVPB STA (19:48)
[2022-01-14] MEDS ORDERED: bisacodyL 10 MG SUPP RECTAL PRN (22:29)
[2022-01-14] MEDS ORDERED: HYDROCORTISONE 2.5% RECTAL CREAM 30 GM TUBE RECTAL PRN (22:29)
[2022-01-14] MEDS ORDERED: BENZOCAINE/MENTHOL SPRAY 1 GM/SPRAY AEROSOL TOPICAL PRN (22:29)
[2022-01-14] MEDS ORDERED: diphenhydrAMINE 25 MG CAP PO PRN (22:29)
[2022-01-14] MEDS ORDERED: diphenhydrAMINE 50 MG/ML 1 ML VIAL IVP PRN (22:29)
[2022-01-14] MEDS ORDERED: SIMETHICONE 80 MG CHEWABLE PO PRN (22:29)
[2022-01-14] MEDS ORDERED: ZOLPIDEM 5 MG TAB PO PRN (22:29)
[2022-01-14] MEDS ORDERED: LANOLIN CREAM 5 GM TUBE TOPICAL PRN (22:29)
[2022-01-14] MEDS ORDERED: ACETAMINOPHEN TAB 325 MG TAB PO PRN (22:29)
--- NOTE | 2022-01-14 22:34 | P.PROBDLV ---
Vaginal Delivery Note - . Vaginal Delivery Note: Normal vaginal delivery viable female Apgars 8 and 9 delivery time is 2010 hours. Please see dictated H&P per Dr. Mills on this patient's admission. Brief summary this is a 21-year-old 1 para 0 female 39-5/7 weeks' gestation who is admitted this morning with spontaneous rupture membranes. Patient is 1 cm on admission and has Pitocin induction of labor. Labor progresses quite slowly. She does get an epidural for pain control. Patient does kind of stall out at approximately 5-6 cm dilated however with position changes and increased Pitocin the patient thereafter then progresses much more quickly. Patient gets to complete she pushes for approximately 20 minutes and pushes the head to the perineum. Posterior perineum was supported and we have controlled delivery of the infant's head over the intact perineum. Infant's presentation straight occiput anterior presentation. There is a nuchal cord which is easily reduced. Patient then pushes and easily delivers the rest of this 's body. This is a vigorous viable female Apgars are 8 and 9 delivery time was 2210 hrs. Infant is 5 lbs. 15 oz. and does have the appearance of intrauterine growth restriction. After delivery of the infant is late on the mother's abdomen. After the cord is done pulsating it is doubly clamped and cut. Placenta is then spontaneously delivered intact. Inspection of the perineum shows a first-degree laceration which is repaired with 3-0 Vicryl in the usual fashion. Excellent reapproximation is noted. Estimated blood loss is 100 mL. There are no complications. Infant and mother are stable in delivery room.
[2022-01-15] MEDS: IBUPROFEN 600 MG TAB PO PRN ×3 (06:27→21:20)
[2022-01-15 06:38] LABS: Basophils % (A) 0 %; Eosinophils % (A) 0 %; HCT 34.6 % (34.0-46.0); HGB 11.8 gm/dL (11.4-16.0); Lymphocytes # (A) 1.8 k/uL (1.0-4.8); Lymphocytes % (A) 13 %; MCH 33.1 pg (25.0-35.0); MCHC 34.1 g/dL (31.0-37.0); MCV 96.9 fL (80.0-100.0); Mean Platelet Volume 7.5; Monocytes # (A) 0.4 k/uL (0-1.0); Monocytes % (A) 3 %; Neutrophils # (A) 11.3 k/uL (1.3-7.7); Neutrophils % (A) 83 %; Platelet Count 312 k/uL (150-450); RBC 3.57 m/uL (3.80-5.40); RDW 13.8 % (11.5-15.5); WBC 13.7 k/uL (3.8-10.6)
[2022-01-15] MEDS: SENNOSIDES-DOCUSATE SODIUM 1 EACH TAB PO SCH ×2 (08:10→21:20)
--- NOTE | 2022-01-15 08:42 | P.PNOBGVD ---
Subjective - Subjective Principal diagnosis: Status post vaginal delivery day #1 Interval history: Patient is doing well. She is bottle feeding. Lochia is decreasing. Pain is well-controlled. Patient reports: Reports appetite normal, Reports voiding normally, Reports pain well controlled, Reports ambulating normally : doing well, bottle feeding Objective - Latest Vital Signs Latest vital signs: Vital Signs Temp Pulse Resp BP Pulse Ox 01/15/22 04:00 97.7 F 83 18 95/53 96 01/14/22 22:45 84 16 129/72 01/14/22 22:30 98.3 F 86 16 122/71 98 Intake and Output 01/14/22 01/15/22 01/15/22 22:59 06:59 14:59 Intake Total 25.567 Output Total 100 Balance -74.433 Intake: Intake, IV Titration 25.567 Amount Oxytocin 30 Units/500 ml 25.567 Ns 30 unit In Saline 1 500ml.bag @ Per Protocol IV .Q0M ABA Rx#:[id number] Output: Estimated Blood Loss 100 Other: # Voids 2 - Exam Extremities: Present: normal. Absent: tenderness Abdomen: Present: normal appearance, soft. Absent: distention, tenderness Uterus: Present: normal, firm. Absent: tenderness - Labs Labs: Abnormal Lab Results - Last 24 Hours (Table) 01/14/22 01/15/22 Range/Units 09:20 05:36 WBC 13.7 H (3.8-10.6) k/uL RBC 3.57 L (3.80-5.40) m/uL Neutrophils # 8.1 H 11.3 H (1.3-7.7) k/uL Assessment and Plan Assessment: Status post vaginal delivery day #1 (1) 39 weeks gestation of Current Visit: Yes Status: Acute Code(s): Z3A.39 - 39 WEEKS GESTATION OF SNOMED Code(s): 40219081 Plan: Continue with care today. Anticipate discharge home tomorrow.
[2022-01-16 01:36] VITALS: PULSE 71
[2022-01-16] MEDS: IBUPROFEN 600 MG TAB PO PRN (08:08)
[2022-01-16] MEDS: SENNOSIDES-DOCUSATE SODIUM 1 EACH TAB PO SCH (08:09)
--- NOTE | 2022-01-16 08:56 | P.DS ---
Providers Date of admission: 01/14/22 08:00 Expected date of discharge: 01/16/22 Attending physician: Diane Mills Primary care physician: Stated None - Discharge Diagnosis(es) (1) 39 weeks gestation of Current Visit: Yes Status: Acute Hospital Course: This is a 21-year-old female 1 para 0 at 39-5/7 weeks who presented with spontaneous rupture of membranes. She underwent oxytocin augmentation of labor and delivered vaginally a viable female on 01/14/2022 with scores of 8 at 1 minute and 9 at 5 minutes and infant weight of 5 lbs. 15 oz. Her course has been uncomplicated. She is bottle feeding. Lochia is decreasing. Her pain is fairly well controlled with ibuprofen. Vital signs are stable. Abdomen is soft with fundus firm and nontender. Extremities show negative Homans. Impression is status post vaginal delivery day #2. Plan is to discharge home today. Routine instructions are given. She is advised to follow up in the office in 6 weeks for check. She is given a prescription for ibuprofen. She is advised to call the office if she has any further questions or concerns prior to her appointment time. Procedures: Oxytocin augmentation of labor Spontaneous vaginal delivery of a viable female infant on 01/14/2022 Patient Condition at Discharge: Stable Plan - Discharge Summary New Discharge Prescriptions: New Ibuprofen [Motrin] 600 mg PO Q6HR PRN #60 tab PRN Reason: Mild Pain (Scale 1 To 3) Continue Pnv No.95/Ferrous Fum/Folic AC [ Multivitamin Tablet] 1 each PO DAILY No Action Omeprazole Magnesium [PriLOSEC OTC] 20 mg PO DIRECTED Discharge Medication List Pnv No.95/Ferrous Fum/Folic AC [ Multivitamin Tablet] 1 each PO DAILY 12/20/21 [History] Omeprazole Magnesium [PriLOSEC OTC] 20 mg PO DIRECTED 12/26/21 [History] Ibuprofen [Motrin] 600 mg PO Q6HR PRN #60 tab 01/16/22 [Rx] Follow up Appointment(s)/Referral(s): Diane Mills DO [Doctor of Osteopathic Medicine] - 02/24/22 11:30 am Activity/Diet/Wound Care/Special Instructions: Instructions 1. Do not begin any exercise program for 3 weeks. 2. Do not resume sexual relations for 3 weeks or longer if uncomfortable. 3. You may take tub baths or showers at any time. 4. You may use tampons if desired after 3 weeks. 5. Keep the area of episiotomy (stitches) clean and dry. 6. If you are not nursing, wear a good fitting, supportive bra during the day and limit fluid intake for at least 1 week to prevent breast engorgement. 7. Call the office, [phone], within the next week to make appointment for your 6 week checkup if it has not already been made. 8. Report any of the following occurrences to the doctor promptly: a. Heavy, excessive bleeding b. Chills, fever c. Burning or frequency of urination d. Pain or redness and breasts if nursing e. Increasing pain or swelling in episiotomy (stitches). In addition to the above instructions, the following additional should be followed: 1. No heavy lifting or straining (exercising) until after 6 week checkup. 2. Keep abdominal incision clean and dry: You may wear a dressing if more comfortable. 3. Make office appointment for 10 days after going home or as instructed by her doctor. Discharge Disposition: HOME SELF-CARE
[2022-01-16 10:02] VITALS: BP 108/72; RESP 18; TEMP 98.5
== END 2022-01-16 10:50 | disposition home or self-care (01) | DRG 807 ==
LOC: FBPOP 07:35 → 4FBP 08:00
PROVIDERS: ADMIT Obstetrics & Gynecology; ATTEND Obstetrics & Gynecology
PROC: 10E0XZZ Delivery of Products of Conception, External Approach (ICD-10-PCS; principal; 2022-01-14)
PROC: 0HQ9XZZ Repair Perineum Skin, External Approach (ICD-10-PCS; 2022-01-14)
PROC: 3E033VJ Introduction of Other Hormone into Peripheral Vein, Percutaneous Approach (ICD-10-PCS; 2022-01-14)
PROC: 4A0HXCZ Measurement of Products of Conception, Cardiac Rate, External Approach (ICD-10-PCS; 2022-01-14)
DX: O42.92 Full-term premature rupture of membranes, unspecified as to length of time between rupture and onset of labor (principal); Z37.0 Single live birth; O70.0 First degree perineal laceration during delivery; O36.5930 Maternal care for other known or suspected poor fetal growth, third trimester, not applicable or unspecified; O69.81X0 Labor and delivery complicated by cord around neck, without compression, not applicable or unspecified; Z3A.39 39 weeks gestation of pregnancy; Z86.711 Personal history of pulmonary embolism
CPT/HCPCS: 85025; 86850; 86900; 86901; 88307

== ENCOUNTER 2022-02-01 03:56 | Inpatient (IN) | payer OTHER ==
[2022-02-01] MEDS ORDERED: MAG HYDROX/AL HYDROX/SIMETH 30 ML, HYOSCYAMINE ELIXIR 10 ML PO STA ×2 (04:22)
[2022-02-01] MEDS ORDERED: KETOROLAC 15 MG/ML 1 ML VIAL IVP STA (04:22)
[2022-02-01] MEDS ORDERED: ONDANSETRON 4 MG/2 ML VIAL IVP STA ×2 (04:22→07:47)
[2022-02-01] MEDS ORDERED: PANTOPRAZOLE 40 MG/10 ML VIAL IVP STA (04:22)
[2022-02-01] MEDS ORDERED: SODIUM CHLORIDE 0.9% 1,000 ML IV STA (04:22)
--- NOTE | 2022-02-01 04:23 | ED ---
Abdominal Pain HPI <Alexis Bhagat - Last Filed: 02/01/22 07:48> - General Source: patient, RN notes reviewed, old records reviewed Mode of arrival: ambulatory - History of Present Illness MD Complaint: abdominal pain -: days(s) Location: RUQ Radiation: RUQ Migration to: no migration Severity: moderate Severity scale (1-10): 4 Quality: cramping, aching Consistency: constant, intermittent Worsens With: nothing Context: other (none) Associated Symptoms: nausea Treatments Prior to Arrival: other (none) <Boyd Doe - Last Filed: 02/01/22 21:33> - General Chief Complaint: Abdominal Pain Stated Complaint: Back Pain, Chest pain Time Seen by Provider: 02/01/22 03:58 - History of Present Illness Initial Comments: This is a 21-year-old female recent coming in for evaluation of abdominal pain epigastric abdominal pain right upper quadrant abdominal pain going on her back is concern for gallbladder disease as she has had problems with her gallbladder in the past. She has mild nausea but no active vomiting no fevers. Normal bowel movement yesterday. Patient is otherwise no significant medical history no surgical history (Boyd Doe) - Related Data Home Medications Medication Instructions Recorded Confirmed Pnv No.95/Ferrous Fum/Folic AC 1 tab PO DAILY 12/20/21 02/01/22 [ Multivitamin Tablet] Omeprazole Magnesium [PriLOSEC OTC] 20 mg PO DAILY PRN 12/26/21 02/01/22 Ibuprofen [Motrin] 600 mg PO Q6H PRN 02/01/22 02/01/22 Allergies Allergy/AdvReac Type Severity Reaction Status Date / Time No Known Allergies Allergy Verified 02/01/22 11:06 Review of Systems ROS Other: All systems not noted in ROS Statement are negative. <Alexis Bhagat - Last Filed: 02/01/22 07:48> ROS Other: All systems not noted in ROS Statement are negative. <Boyd Doe - Last Filed: 02/01/22 21:33> ROS Statement: Those systems with pertinent positive or pertinent negative responses have been documented in the HPI. Past Medical History Past Medical History: No Reported History Additional Past Medical History / Comment(s): vertigo History of Any Multi-Drug Resistant Organisms: None Reported Past Surgical History: No Surgical Hx Reported Past Anesthesia/Blood Transfusion Reactions: No Reported Reaction Past Psychological History: No Psychological Hx Reported Smoking Status: Never smoker Past Alcohol Use History: None Reported Past Drug Use History: None Reported - Past Family History Father Family Medical History: No Reported History <Boyd Doe - Last Filed: 02/01/22 21:33> General Exam General appearance: alert, in no apparent distress Head exam: Present: atraumatic, normocephalic, normal inspection Eye exam: Present: normal appearance, PERRL, EOMI. Absent: scleral icterus, conjunctival injection, periorbital swelling ENT exam: Present: normal exam, mucous membranes moist Neck exam: Present: normal inspection. Absent: tenderness, meningismus, lymphadenopathy Respiratory exam: Present: normal lung sounds bilaterally. Absent: respiratory distress, wheezes, rales, rhonchi, stridor Cardiovascular Exam: Present: regular rate, normal rhythm, normal heart sounds. Absent: systolic murmur, diastolic murmur, rubs, gallop, clicks GI/Abdominal exam: Present: soft, tenderness, guarding (RUQ), normal bowel sounds. Absent: distended, rebound, rigid Extremities exam: Present: normal inspection, full ROM, normal capillary refill. Absent: tenderness, pedal edema, joint swelling, calf tenderness Back exam: Present: normal inspection Neurological exam: Present: alert, oriented X3, CN II-XII intact Psychiatric exam: Present: normal affect, normal mood Skin exam: Present: warm, dry, intact, normal color. Absent: rash <Boyd oDe - Last Filed: 02/01/22 21:33> Course <Boyd Doe - Last Filed: 02/01/22 21:33> Vital Signs 02/01/22 02/01/22 02/01/22 04:16 07:00 08:10 Temperature 98.5 F 98.2 F Pulse Rate 70 72 78 Respiratory 18 18 18 Rate Blood Pressure 128/86 132/70 107/71 O2 Sat by Pulse 99 100 99 Oximetry - Reevaluation(s) Reevaluation #1: 02/01/22 05:13 medical records reviewed (Boyd Doe) Medical Decision Making - Lab Data Result diagrams: 02/01/22 04:50 02/01/22 04:50 - Radiology Data Radiology results: report reviewed (Gallstones and dilated duct) <Alexis Bhagat - Last Filed: 02/01/22 07:48> - Lab Data Result diagrams: 02/01/22 04:50 02/01/22 04:50 <Boyd Doe - Last Filed: 02/01/22 21:33> - Medical Decision Making Patient reevaluated and resting comfortably in bed. Patient states her discomfort and nausea starting to worsen and requests medication. Abdomen is soft with minimal tenderness right upper quadrant. Case discussed with Dr. Smith, who will admit surgical call. (Alexis Bhagat) - Lab Data Lab Results 02/01/22 02/01/22 02/01/22 Range/Units 04:50 04:50 04:50 WBC 9.4 (3.8-10.6) k/uL RBC 4.39 (3.80-5.40) m/uL Hgb 14.1 (11.4-16.0) gm/dL Hct 42.4 (34.0-46.0) % MCV 96.6 (80.0-100.0) fL MCH 32.0 (25.0-35.0) pg MCHC 33.1 (31.0-37.0) g/dL RDW 12.3 (11.5-15.5) % Plt Count 317 (150-450) k/uL MPV 7.1 Neutrophils % 85 % Lymphocytes % 11 % Monocytes % 2 % Eosinophils % 1 % Basophils % 1 % Neutrophils # 8.0 H (1.3-7.7) k/uL Lymphocytes # 1.0 (1.0-4.8) k/uL Monocytes # 0.2 (0-1.0) k/uL Eosinophils # 0.1 (0-0.7) k/uL Basophils # 0.1 (0-0.2) k/uL Sodium (137-145) mmol/L Potassium (3.5-5.1) mmol/L Chloride (98-107) mmol/L Carbon Dioxide (22-30) mmol/L Anion Gap mmol/L BUN (7-17) mg/dL Creatinine (0.52-1.04) mg/dL Est GFR (CKD-EPI)AfAm (>60 ml/min/1.73 sqM) Est GFR (CKD-EPI)NonAf (>60 ml/min/1.73 sqM) Glucose (74-99) mg/dL Calcium (8.4-10.2) mg/dL Total Bilirubin (0.2-1.3) mg/dL AST (14-36) U/L ALT (4-34) U/L Alkaline Phosphatase (38-126) U/L Total Protein (6.3-8.2) g/dL Albumin (3.5-5.0) g/dL Amylase (30-110) U/L Lipase (23-300) U/L Urine Color Yellow Urine Appearance Clear (Clear) Urine pH 7.0 (5.0-8.0) Ur Specific [place] 1.010 (1.001-1.035) Urine Protein Negative (Negative) Urine Glucose (UA) Negative (Negative) Urine Ketones Negative (Negative) Urine Blood Small H (Negative) Urine Nitrite Negative (Negative) Urine Bilirubin Negative (Negative) Urine Urobilinogen <2.0 (<2.0) mg/dL Ur Leukocyte Esterase Large H (Negative) Urine RBC 2 (0-5) /hpf Urine WBC 26 H (0-5) /hpf Ur Squamous Epith Cells 1 (0-4) /hpf Urine Bacteria Rare H (None) /hpf Urine HCG, Qual Not Detected (Not Detectd) 02/01/22 Range/Units 04:50 WBC (3.8-10.6) k/uL RBC (3.80-5.40) m/uL Hgb (11.4-16.0) gm/dL Hct (34.0-46.0) % MCV (80.0-100.0) fL MCH (25.0-35.0) pg MCHC (31.0-37.0) g/dL RDW (11.5-15.5) % Plt Count (150-450) k/uL MPV Neutrophils % % Lymphocytes % % Monocytes % % Eosinophils % % Basophils % % Neutrophils # (1.3-7.7) k/uL Lymphocytes # (1.0-4.8) k/uL Monocytes # (0-1.0) k/uL Eosinophils # (0-0.7) k/uL Basophils # (0-0.2) k/uL Sodium 137 (137-145) mmol/L Potassium 4.6 (3.5-5.1) mmol/L Chloride 103 (98-107) mmol/L Carbon Dioxide 26 (22-30) mmol/L Anion Gap 8 mmol/L BUN 10 (7-17) mg/dL Creatinine 0.61 (0.52-1.04) mg/dL Est GFR (CKD-EPI)AfAm >90 (>60 ml/min/1.73 sqM) Est GFR (CKD-EPI)NonAf >90 (>60 ml/min/1.73 sqM) Glucose 106 H (74-99) mg/dL Calcium 9.4 (8.4-10.2) mg/dL Total Bilirubin 1.3 (0.2-1.3) mg/dL AST 224 H (14-36) U/L ALT 95 H (4-34) U/L Alkaline Phosphatase 156 H (38-126) U/L Total Protein 8.2 (6.3-8.2) g/dL Albumin 4.5 (3.5-5.0) g/dL Amylase 46 (30-110) U/L Lipase 172 (23-300) U/L Urine Color Urine Appearance (Clear) Urine pH (5.0-8.0) Ur Specific [place] (1.001-1.035) Urine Protein (Negative) Urine Glucose (UA) (Negative) Urine Ketones (Negative) Urine Blood (Negative) Urine Nitrite (Negative) Urine Bilirubin (Negative) Urine Urobilinogen (<2.0) mg/dL Ur Leukocyte Esterase (Negative) Urine RBC (0-5) /hpf Urine WBC (0-5) /hpf Ur Squamous Epith Cells (0-4) /hpf Urine Bacteria (None) /hpf Urine HCG, Qual (Not Detectd) Disposition Is patient prescribed a controlled substance at d/c from ED?: No Decision Time: 07:48 <Alexis Bhagat - Last Filed: 02/01/22 07:48> Is patient prescribed a controlled substance at d/c from ED?: No <Boyd Doe - Last Filed: 02/01/22 21:33> Clinical Impression: Cholelithiasis, Abdominal pain, Abdominal colic Disposition: ADMITTED IP TO THIS HOSP Condition: Good
[2022-02-01 05:13] LABS: Basophils # (A) 0.1 k/uL (0-0.2); Basophils % (A) 1 %; Eosinophils # (A) 0.1 k/uL (0-0.7); Eosinophils % (A) 1 %; HCT 42.4 % (34.0-46.0); HGB 14.1 gm/dL (11.4-16.0); Lymphocytes % (A) 11 %; MCHC 33.1 g/dL (31.0-37.0); MCV 96.6 fL (80.0-100.0); Mean Platelet Volume 7.1; Monocytes # (A) 0.2 k/uL (0-1.0); Monocytes % (A) 2 %; Neutrophils % (A) 85 %; Platelet Count 317 k/uL (150-450); RBC 4.39 m/uL (3.80-5.40); RDW 12.3 % (11.5-15.5); WBC 9.4 k/uL (3.8-10.6)
[2022-02-01 05:21] LABS: Appearance,Urine Clear (Clear); Bacteria,Urine Rare /hpf; Bilirubin,Urine Negative (Negative); Blood,Urine Small (Negative); Color,Urine Yellow; Glucose,Urine (UA) Negative (Negative); Ketones,Urine Negative (Negative); Leukocyte Esterase,Urine Large (Negative); Nitrite,Urine Negative (Negative); Protein,Urine Negative (Negative); RBC,Urine 2 /hpf (0-5); Squamous Epithelial Cell,Urine 1 /hpf (0-4); Urobilinogen,Urine <2.0 mg/dL (<2.0); WBC,Urine 26 /hpf (0-5)
[2022-02-01 05:47] LABS: ALT 95 U/L (4-34); African American GFR (CKD) >90 (>60 ml/min/1.73 sqM); Amylase 46 U/L (30-110); Anion Gap 8 mmol/L; Blood Urea Nitrogen 10 mg/dL (7-17); Calcium 9.4 mg/dL (8.4-10.2); Carbon Dioxide 26 mmol/L (22-30); Chloride 103 mmol/L (98-107); Glucose 106 mg/dL (74-99); Lipase 172 U/L (23-300); Non-African American GFR(CKD) >90 (>60 ml/min/1.73 sqM); Sodium 137 mmol/L (137-145); Total Bilirubin 1.3 mg/dL (0.2-1.3)
[2022-02-01 05:56] LABS: AST 224 U/L (14-36); Albumin 4.5 g/dL (3.5-5.0); Alkaline Phosphatase 156 U/L (38-126); Potassium 4.6 mmol/L (3.5-5.1); Total Protein 8.2 g/dL (6.3-8.2)
[2022-02-01] MEDS ORDERED: cefTRIAXone IN SWFI 1,000 MG/10 ML SYRINGE IVP STA (05:57)
--- NOTE | 2022-02-01 07:36 | US ---
EXAMINATION TYPE: US gallbladder DATE OF EXAM: 02/01/2022 COMPARISON: NONE CLINICAL HISTORY: GB. heartburn, RUQ Pain, N/V back pain, 4 weeks EXAM MEASUREMENTS: Liver Length: 17.3 cm Gallbladder Wall: 0.2 cm CBD: 1.2 cm Right Kidney: 11.3 x 5.4 x 5.7 cm Pancreas: bowel gas obscures pancreas Liver: intercostal imaging due to gas appears wnl Gallbladder: multiple fundal stones seen with no wall thickening Evidence for sonographic Olivier's sign: no CBD: dilated with no obstruction seen, pancreas head obscured by bowel gas Right Kidney: wnl IMPRESSION: 1. Cholelithiasis with common bile duct dilatation. No gallbladder wall thickening or pericholecystic fluid at this time.
[2022-02-01] MEDS ORDERED: HYDROmorphone 1 MG/ML 1 ML SYRINGE IVP STA (07:47)
[2022-02-01] MEDS ORDERED: NALOXONE 0.4 MG/ML 1 ML VIAL IV PRN (07:49)
[2022-02-01] MEDS: SODIUM CHLORIDE 0.9% 1,000 ML IV SCH ×3 (08:10→20:01)
--- NOTE | 2022-02-01 11:32 | P.GSHP ---
History of Present Illness H&P Date: 02/01/22 Chief Complaint: Epigastric and right upper quadrant pain. This is a 21-year-old female was admitted through the emergency with complaints of epigastric right upper quadrant pain. Patient's found have cholelithiasis. Patient also has mild elevation of her liver function tests. She is currently pain-free. Past Medical History Past Medical History: No Reported History Additional Past Medical History / Comment(s): vertigo History of Any Multi-Drug Resistant Organisms: None Reported Past Surgical History: No Surgical Hx Reported Past Anesthesia/Blood Transfusion Reactions: No Reported Reaction Past Psychological History: No Psychological Hx Reported Smoking Status: Never smoker Past Alcohol Use History: None Reported Past Drug Use History: None Reported - Past Family History Father Family Medical History: No Reported History Medications and Allergies Home Medications Medication Instructions Recorded Confirmed Type Pnv No.95/Ferrous Fum/Folic AC 1 tab PO DAILY 12/20/21 02/01/22 History [ Multivitamin Tablet] Omeprazole Magnesium [PriLOSEC OTC] 20 mg PO DAILY PRN 12/26/21 02/01/22 History Ibuprofen [Motrin] 600 mg PO Q6H PRN 02/01/22 02/01/22 History Allergies Allergy/AdvReac Type Severity Reaction Status Date / Time No Known Allergies Allergy Verified 02/01/22 11:06 Surgical - Exam Vital Signs Temp Pulse Resp BP Pulse Ox 98.5 F 70 18 128/86 99 02/01/22 04:16 02/01/22 04:16 02/01/22 04:16 02/01/22 04:16 02/01/22 04:16 - General well developed, well nourished, no distress - Eyes PERRL - ENT normal pinna, normal nares, normal mucosa - Neck no masses - Respiratory normal expansion - Cardiovascular Rhythm: regular - Abdomen Abdomen: soft, non tender Results - Labs 02/01/22 04:50 02/01/22 04:50 Abnormal Lab Results - Last 24 Hours (Table) 02/01/22 02/01/22 02/01/22 Range/Units 04:50 04:50 04:50 Neutrophils # 8.0 H (1.3-7.7) k/uL Glucose 106 H (74-99) mg/dL AST 224 H (14-36) U/L ALT 95 H (4-34) U/L Alkaline Phosphatase 156 H (38-126) U/L Urine Blood Small H (Negative) Ur Leukocyte Esterase Large H (Negative) Urine WBC 26 H (0-5) /hpf Urine Bacteria Rare H (None) /hpf Diabetes panel 02/01/22 Range/Units 04:50 Sodium 137 (137-145) mmol/L Potassium 4.6 (3.5-5.1) mmol/L Chloride 103 (98-107) mmol/L Carbon Dioxide 26 (22-30) mmol/L BUN 10 (7-17) mg/dL Creatinine 0.61 (0.52-1.04) mg/dL Glucose 106 H (74-99) mg/dL Calcium 9.4 (8.4-10.2) mg/dL AST 224 H (14-36) U/L ALT 95 H (4-34) U/L Alkaline Phosphatase 156 H (38-126) U/L Total Protein 8.2 (6.3-8.2) g/dL Albumin 4.5 (3.5-5.0) g/dL Calcium panel 02/01/22 Range/Units 04:50 Calcium 9.4 (8.4-10.2) mg/dL Albumin 4.5 (3.5-5.0) g/dL Pituitary panel 02/01/22 Range/Units 04:50 Sodium 137 (137-145) mmol/L Potassium 4.6 (3.5-5.1) mmol/L Chloride 103 (98-107) mmol/L Carbon Dioxide 26 (22-30) mmol/L BUN 10 (7-17) mg/dL Creatinine 0.61 (0.52-1.04) mg/dL Glucose 106 H (74-99) mg/dL Calcium 9.4 (8.4-10.2) mg/dL Adrenal panel 02/01/22 Range/Units 04:50 Sodium 137 (137-145) mmol/L Potassium 4.6 (3.5-5.1) mmol/L Chloride 103 (98-107) mmol/L Carbon Dioxide 26 (22-30) mmol/L BUN 10 (7-17) mg/dL Creatinine 0.61 (0.52-1.04) mg/dL Glucose 106 H (74-99) mg/dL Calcium 9.4 (8.4-10.2) mg/dL Total Bilirubin 1.3 (0.2-1.3) mg/dL AST 224 H (14-36) U/L ALT 95 H (4-34) U/L Alkaline Phosphatase 156 H (38-126) U/L Total Protein 8.2 (6.3-8.2) g/dL Albumin 4.5 (3.5-5.0) g/dL Assessment and Plan Assessment: Cholelithiasis with mild elevation of liver function tests. Patient's white count is normal. She is pain-free. Patient will be observed. She'll have her labs rechecked tomorrow.
--- NOTE | 2022-02-01 12:53 | P.CONS ---
History of Present Illness - Reason for Consult Transaminitis - History of Present Illness Patient is a 24-year-old pleasant obese female with a recent a came in for the epigastric and right upper quadrant abdominal pain not related to food. Patient pain is crampy in nature sharp in nature patient pain presently resolved patient had significant pain earlier today morning. Patient had an auto sound of the abdomen showed cholelithiasis and dilated common bile duct up to 1.2 cm with mildly elevated liver enzymes. Unfortunately we do not have any GI services at this time. ERCP. Because of which repeat liver enzymes will be obtained tomorrow general surgery evaluated the patient. REVIEW OF SYSTEMS: CONSTITUTIONAL: No fever, no malaise, no fatigue. HEENT: No recent visual problems or hearing problems. Denied any sore throat. CARDIOVASCULAR: No chest pain, orthopnea, PND, no palpitations, no syncope. PULMONARY: No shortness of breath, no cough, no hemoptysis. GASTROINTESTINAL: As mentioned in HPI NEUROLOGICAL: No headaches, no weakness, no numbness. HEMATOLOGICAL: Denies any bleeding or petechiae. GENITOURINARY: Denies any burning micturition, frequency, or urgency. MUSCULOSKELETAL/RHEUMATOLOGICAL: Denies any joint pain, swelling, or any muscle pain. ENDOCRINE: Denies any polyuria or polydipsia. The rest of the 14-point review of systems is negative. PHYSICAL EXAMINATION: GENERAL: The patient is alert and oriented x3, not in any acute distress. Obese HEENT: Pupils are round and equally reacting to light. EOMI. No scleral icterus. No conjunctival pallor. Normocephalic, atraumatic. No pharyngeal erythema. No thyromegaly. CARDIOVASCULAR: S1 and S2 present. No murmurs, rubs, or gallops. PULMONARY: Chest is clear to auscultation, no wheezing or crackles. ABDOMEN: Soft, nontender, nondistended, normoactive bowel sounds. No palpable organomegaly. MUSCULOSKELETAL: No joint swelling or deformity. EXTREMITIES: No cyanosis, clubbing, or pedal edema. NEUROLOGICAL: Gross neurological examination did not reveal any focal deficits. SKIN: No rashes. Assessment and plan -Cholelithiasis: Neurosurgery evaluated the patient continue with IV fluids clinically patient doesn't have any evidence of cholecystitis because of which patient is not on any antibiotics at this time -Possibility of choledocholithiasis cannot be ruled out testing patient has abat ed liver enzymes and dilated common bile duct. Liver enzymes will be monitored further decision regarding cholecystectomy as per primary service -Gases feel reflux disease for which patient is on Protonix to be continued patient takes Motrin at home which is being held at this time. DVT prophylaxis: As per primary service, early ambulation Past Medical History Past Medical History: No Reported History Additional Past Medical History / Comment(s): vertigo History of Any Multi-Drug Resistant Organisms: None Reported Past Surgical History: No Surgical Hx Reported Past Anesthesia/Blood Transfusion Reactions: No Reported Reaction Past Psychological History: No Psychological Hx Reported Smoking Status: Never smoker Past Alcohol Use History: None Reported Past Drug Use History: None Reported - Past Family History Father Family Medical History: No Reported History Medications and Allergies Home Medications Medication Instructions Recorded Confirmed Type Pnv No.95/Ferrous Fum/Folic AC 1 tab PO DAILY 12/20/21 02/01/22 History [ Multivitamin Tablet] Omeprazole Magnesium [PriLOSEC OTC] 20 mg PO DAILY PRN 12/26/21 02/01/22 History Ibuprofen [Motrin] 600 mg PO Q6H PRN 02/01/22 02/01/22 History Allergies Allergy/AdvReac Type Severity Reaction Status Date / Time No Known Allergies Allergy Verified 02/01/22 11:06 Physical Exam Vitals: Vital Signs Temp Pulse Pulse Resp BP BP Pulse Ox 02/01/22 09:15 97.7 F 63 16 120/77 97 02/01/22 08:10 98.2 F 78 18 107/71 99 02/01/22 07:00 72 18 132/70 100 02/01/22 04:16 98.5 F 70 18 128/86 99 Intake and Output 01/31/22 02/01/22 02/01/22 22:59 06:59 14:59 Other: Voiding Method Toilet Weight 97.522 kg 97.522 kg Results CBC & Chem 7: 02/01/22 04:50 02/01/22 04:50 Labs: Abnormal Lab Results - Last 24 Hours (Table) 02/01/22 02/01/22 02/01/22 Range/Units 04:50 04:50 04:50 Neutrophils # 8.0 H (1.3-7.7) k/uL Glucose 106 H (74-99) mg/dL AST 224 H (14-36) U/L ALT 95 H (4-34) U/L Alkaline Phosphatase 156 H (38-126) U/L Urine Blood Small H (Negative) Ur Leukocyte Esterase Large H (Negative) Urine WBC 26 H (0-5) /hpf Urine Bacteria Rare H (None) /hpf Microbiology - Last 24 Hours (Table) 02/01/22 04:50 Urine Culture - Preliminary Urine,Voided
[2022-02-01] MEDS: PANTOPRAZOLE 40 MG/10 ML VIAL IV SCH (16:30)
[2022-02-01] MEDS: HYDROmorphone 1 MG/ML 1 ML SYRINGE IVP PRN (16:30)
[2022-02-02] MEDS: HYDROmorphone 1 MG/ML 1 ML SYRINGE IVP PRN ×5 (00:32→21:12)
[2022-02-02] MEDS: ONDANSETRON 4 MG/2 ML VIAL IVP PRN ×3 (00:32→19:55)
[2022-02-02] MEDS: SODIUM CHLORIDE 0.9% 1,000 ML IV SCH ×3 (08:18→19:55)
[2022-02-02] MEDS: PANTOPRAZOLE 40 MG/10 ML VIAL IV SCH (08:18)
[2022-02-02 08:50] LABS: African American GFR (CKD) 142.6 (60.0-200.0); Albumin 3.7 g/dL (3.8-4.9); Albumin/Globulin Ratio 1.59 (1.60-3.17); Anion Gap 9.5 mmol/L (10.00-18.00); BUN/Creat Ratio 10.63 Ratio (12.00-20.00); Blood Urea Nitrogen 7.5 mg/dL (9.0-27.0); Calcium 8.6 mg/dL (8.7-10.3); Carbon Dioxide 24.3 mmol/L (20.0-27.5); Globulin 2.3 g/dL (1.6-3.3); Potassium 3.9 mmol/L (3.5-5.5); Total Bilirubin 1.9 mg/dL (0.30-1.20); Total Protein 5.9 g/dL (6.2-8.2)
--- NOTE | 2022-02-02 11:40 | P.PN ---
Progress Note - Text Progress Note Date: 02/02/22 The patient states she feels better this morning. However her liver enzyme tests have slightly risen from yesterday. On exam vital signs are stable. Abdomen soft. Cholecystitis with choledocholithiasis. Patient will have her liver function tests repeated in the a.m. If they have improved she'll undergo laparoscopic cholecystectomy
--- NOTE | 2022-02-02 12:30 | P.PN ---
Subjective Progress Note Date: 02/02/22 Patient is a 24-year-old pleasant obese female with a recent a came in for the epigastric and right upper quadrant abdominal pain not related to food. Patient pain is crampy in nature sharp in nature patient pain presently resolved patient had significant pain earlier today morning. Patient had an auto sound of the abdomen showed cholelithiasis and dilated common bile duct up to 1.2 cm with mildly elevated liver enzymes. Unfortunately we do not have any GI services at this time. ERCP. Because of which repeat liver enzymes will be obtained tomorrow general surgery evaluated the patient. 02/02/2022 Patient evaluated today resting in bed. Had an uncomplicated vaginal delivery 3 weeks ago. She is not currently . Still with vaginal bleeding passing some clots per patient. Abdominal discomfort continues still crampy, relieved with pain medication. States the current dose made her lightheaded and nauseas, decreased to 0.5 mg, and continue with zofran for nausea. Labs today show AST 276, ALT 333, alk phos 277. Urine culture pending. Pt is afebrile, heart rate 70, blood pressure 115/75, 99% on room air. Plan for MRCP today. REVIEW OF SYSTEMS: CONSTITUTIONAL: No fever, no malaise, no fatigue. HEENT: No recent visual problems or hearing problems. Denied any sore throat. CARDIOVASCULAR: No chest pain, orthopnea, PND, no palpitations, no syncope. PULMONARY: No shortness of breath, no cough, no hemoptysis. : Reports mild RUQ abdominal pain crampy and tender with palpation, no nausea, vomiting, no BM for 2-3 days. No dyusria, urgency or frequeny. Vaginal bleeding with clots. All medications reviewed and appropriate. PHYSICAL EXAMINATION: GENERAL: The patient is alert and oriented x3, not in any acute distress. Obese HEENT: Pupils are round and equally reacting to light. EOMI. No scleral icterus. No conjunctival pallor. Normocephalic, atraumatic. No pharyngeal erythema. No thyromegaly. CARDIOVASCULAR: S1 and S2 present. No murmurs, rubs, or gallops. PULMONARY: Chest is clear to auscultation, no wheezing or crackles. ABDOMEN: Soft, mild RUQ tenderness, nondistended, normoactive bowel sounds. No palpable organomegaly. MUSCULOSKELETAL: No joint swelling or deformity. EXTREMITIES: No cyanosis, clubbing, or pedal edema. NEUROLOGICAL: Gross neurological examination did not reveal any focal deficits. SKIN: No rashes. Assessment and plan -Cholelithiasis: no evidence for cholecystitis not currently on antibiotics, following by general surgery -Possibility of choledocholithiasis cannot be ruled out, Liver enzymes are increased from yesterday and plan by primary is for MRCP today and to monitor trends. -Gastroesophageal reflux disease; on protonix, hold home dose of motrin for now -Status post vaginal delivery 3 weeks ago, no complications per patient DVT prophylaxis: As per primary service, early ambulation Objective - Vital Signs Vital signs: Vital Signs Temp 98.3 F 02/02/22 07:30 Pulse 72 02/02/22 07:30 Resp 16 02/02/22 07:30 BP 115/75 02/02/22 07:30 Pulse Ox 99 02/02/22 07:30 Intake & Output 02/01/22 02/02/22 02/02/22 18:59 06:59 18:59 Intake Total 480 240 Balance 480 240 Weight 97.522 kg Intake: Oral 480 240 Other: Voiding Method Toilet Toilet # Voids 1 3 - Labs CBC & Chem 7: 02/01/22 04:50 02/02/22 06:27 Labs: Abnormal Lab Results - Last 24 Hours (Table) 02/02/22 Range/Units 06:27 Anion Gap 9.50 L (10.00-18.00) mmol/L BUN 7.5 L (9.0-27.0) mg/dL BUN/Creatinine Ratio 10.63 L (12.00-20.00) Ratio Calcium 8.6 L (8.7-10.3) mg/dL Total Bilirubin 1.90 H (0.30-1.20) mg/dL AST 276 H (13-35) U/L ALT 333 H (8-44) U/L Alkaline Phosphatase 277 H (41-126) U/L Total Protein 5.9 L (6.2-8.2) g/dL Albumin 3.7 L (3.8-4.9) g/dL Albumin/Globulin Ratio 1.59 L (1.60-3.17) g/dL Microbiology - Last 24 Hours (Table) 02/01/22 04:50 Urine Culture - Preliminary Urine,Voided Assessment and Plan Time with Patient: Less than 30
[2022-02-02] MEDS: DOCUSATE 100 MG CAP PO SCH (12:35)
[2022-02-02] MEDS ORDERED: KETOROLAC 15 MG/ML 1 ML VIAL IVP PRN (14:52)
[2022-02-02] MEDS ORDERED: KETOROLAC 30 MG/ML 1 ML VIAL IVP ONE (14:53)
[2022-02-03] MEDS: ONDANSETRON 4 MG/2 ML VIAL IVP PRN ×3 (02:44→19:05)
[2022-02-03] MEDS: HYDROmorphone 1 MG/ML 1 ML SYRINGE IVP PRN ×5 (02:44→23:05)
[2022-02-03] MEDS: SODIUM CHLORIDE 0.9% 1,000 ML IV SCH ×3 (06:59→21:36)
[2022-02-03] MEDS: DOCUSATE 100 MG CAP PO SCH (07:24)
[2022-02-03] MEDS: PANTOPRAZOLE 40 MG/10 ML VIAL IV SCH (07:24)
[2022-02-03 07:41] LABS: ALT 242 U/L (4-34); AST 99 U/L (14-36); African American GFR (CKD) >90 (>60 ml/min/1.73 sqM); Albumin 3.3 g/dL (3.5-5.0); Albumin/Globulin Ratio 1.1; Alkaline Phosphatase 248 U/L (38-126); Anion Gap 2 mmol/L; Blood Urea Nitrogen 7 mg/dL (7-17); Calcium 8.2 mg/dL (8.4-10.2); Carbon Dioxide 26 mmol/L (22-30); Chloride 107 mmol/L (98-107); Glucose 85 mg/dL (74-99); Non-African American GFR(CKD) >90 (>60 ml/min/1.73 sqM); Potassium 3.6 mmol/L (3.5-5.1); Sodium 135 mmol/L (137-145); Total Bilirubin 1.2 mg/dL (0.2-1.3); Total Protein 6.3 g/dL (6.3-8.2)
[2022-02-03] MEDS ORDERED: IV FLUID CONTINUATION 1,000 ML IV ONE (09:27)
[2022-02-03] MEDS ORDERED: HEPARIN SODIUM,PORCINE/PF 5,000 UNIT/0.5 ML SYRINGE SQ ONE (09:28)
[2022-02-03] MEDS ORDERED: ONDANSETRON 4 MG/2 ML VIAL IVP ONE (09:47)
[2022-02-03] MEDS ORDERED: DEXAMETHASONE SOD PHOSPHATE 4 MG/ML 1 ML VIAL IVP ONE (09:47)
[2022-02-03] MEDS ORDERED: GLYCOPYRROLATE 0.2 MG/ML 2 ML VIAL ONE (10:00)
[2022-02-03] MEDS ORDERED: MIDAZOLAM 2 MG/2 ML VIAL ONE (10:00)
[2022-02-03] MEDS ORDERED: ROCURONIUM 10 MG/ML (5 ML VIAL) IV ONE (10:00)
[2022-02-03] MEDS ORDERED: PROPOFOL 10 MG/ML 20 ML VIAL IV ONE (10:00)
[2022-02-03] MEDS ORDERED: SUCCINYLCHOLINE CHLORIDE 100 MG/5 ML SYR IV ONE (10:00)
[2022-02-03] MEDS ORDERED: NEOSTIGMINE 1 MG/ML 10 ML VIAL ONE (10:00)
[2022-02-03] MEDS ORDERED: LIDOCAINE 1% INJ 10MG/ML (20 ML MDV) ONE (10:00)
[2022-02-03] MEDS ORDERED: HYDROmorphone (PF) 1 MG/ML ONE (10:00)
[2022-02-03] MEDS ORDERED: fentaNYL (PF) 50 MCG/ML 2 ML AMP ONE (10:00)
[2022-02-03] MEDS ORDERED: PHENYLEPHRINE-0.9% NACL SYG 1,000 MCG/10 ML SYRINGE ONE (10:00)
[2022-02-03] MEDS ORDERED: KETOROLAC 15 MG/ML 1 ML VIAL ONE (10:00)
[2022-02-03] MEDS ORDERED: LACTATED RINGERS 1,000 ML IV ONE (10:33)
[2022-02-03] MEDS ORDERED: BUPIVACAIN-EPI 0.25%-1:200,000 30 ML VIAL SQ ONE (10:33)
--- NOTE | 2022-02-03 10:51 | P.OP ---
Date of Procedure: 02/03/22 Preoperative Diagnosis: Cholecystitis Cholelithiasis Postoperative Diagnosis: Cholecystitis Cholelithiasis Procedure(s) Performed: Laparoscopic cholecystectomy Anesthesia: ODALYS Surgeon: Esdras Smith Estimated Blood Loss (ml): 5 Pathology: other (Gallbladder) Condition: stable Disposition: PACU Description of Procedure: The patient was placed on the operating table. The patient received a general endotracheal tube anesthesia. The patients abdomen was prepped and draped in the usual sterile fashion. Through an infraumbilical stab incision, the fascia of the anterior abdominal wall was grasped with a pair of Kochers and then the Veress needle was placed in the peritoneal cavity. Position of the Veress needle was confirmed with positive drop test. The abdomen was then insufflated. After adequate insufflation, the 10 mm trocar was placed in the peritoneal cavity. Following this the laparoscope was placed in the peritoneal cavity. The patient was placed in the head-up, right side up position and then a 5 mm trocar was placed in the right lateral and right subcostal position under direct visualization. A 8 mm trocar was placed in the epigastric position. The gallbladder was grasped in the fundus and infundibulum. Traction on the gallbladder was placed in the lateral and the cephalad positions. The triangle of Calot was visualized.. The cystic duct was bluntly dissected until the union of the cystic duct and common bile duct wa s seen. A critical view of safety was achieved. The cystic duct was then divided and sealed with the Harmonic scissors. A PDS Endoloop was then placed throughout the cystic duct stump. The cystic artery divided and sealed with the Harmonic scissors. The gallbladder was then removed from the liver bed using Harmonic scissors. The gallbladder was then extracted through the epigastric port site. Operative field was checked for any bleeding spots and Harmonic scissors was used to coagulate the liver bed. The abdomen was irrigated. The trocars were removed. The skin was closed using interrupted 3-0 Vicryl suture. Dermabond dressing were applied. The patient tolerated the procedure well.
[2022-02-03] MEDS ORDERED: SIMETHICONE 40 MG/0.6 ML DROPS 2,000 MG/30 ML BOTTLE PO PRN (13:26)
--- NOTE | 2022-02-03 13:29 | P.PN ---
Subjective Progress Note Date: 02/03/22 Patient is a 24-year-old pleasant obese female with a recent a came in for the epigastric and right upper quadrant abdominal pain not related to food. Patient pain is crampy in nature sharp in nature patient pain presently resolved patient had significant pain earlier today morning. Patient had an auto sound of the abdomen showed cholelithiasis and dilated common bile duct up to 1.2 cm with mildly elevated liver enzymes. Unfortunately we do not have any GI services at this time. ERCP. Because of which repeat liver enzymes will be obtained tomorrow general surgery evaluated the patient. 02/02/2022 Patient evaluated today resting in bed. Had an uncomplicated vaginal delivery 3 weeks ago. She is not currently . Still with vaginal bleeding passing some clots per patient. Abdominal discomfort continues still crampy, relieved with pain medication. States the current dose made her lightheaded and nauseas, decreased to 0.5 mg, and continue with zofran for nausea. Labs today show AST 276, ALT 333, alk phos 277. Urine culture pending. Pt is afebrile, heart rate 70, blood pressure 115/75, 99% on room air. Plan for MRCP today. 02/03/2022 Patient is evaluated today resting in bed postoperative laproscopic cholecystectomy. Did not undergo MRCP today. Labs this morning showed sodium 135, potassium 3.6, anion gap closed and 2, BUN 7, creatinine 0.74, calcium 8.2, total bili 1.2, AST 99, ALT 242, alk phos 248, albumin 3.3. Vitals this morning showed patient afebrile, heart rate 64, blood pressure on the lower side at 94/60. Patient was receiving IV fluids throughout the evening which will continue postoperatively. Continue with IV Protonix daily and Dilaudid for pain management. Patient was placed on Lovenox for prophylaxis. She is also complaining of sharp gas pains epigastric. REVIEW OF SYSTEMS: CONSTITUTIONAL: No fever, no malaise, no fatigue. HEENT: No recent visual problems or hearing problems. Denied any sore throat. CARDIOVASCULAR: No chest pain, orthopnea, PND, no palpitations, no syncope. PULMONARY: No shortness of breath, no cough, no hemoptysis. : Reports sharp RUQ abdominal pain 7/10 as well as sharp epigastric gas pains All medications reviewed and appropriate. PHYSICAL EXAMINATION: GENERAL: The patient is alert and oriented x3, not in any acute distress. Obese HEENT: Pupils are round and equally reacting to light. EOMI. No scleral icterus. No conjunctival pallor. Normocephalic, atraumatic. No pharyngeal erythema. No thyromegaly. CARDIOVASCULAR: S1 and S2 present. No murmurs, rubs, or gallops. PULMONARY: Chest is clear to auscultation, no wheezing or crackles. ABDOMEN: Soft, tender, nondistended, normoactive bowel sounds. No palpable organomegaly. Post surgical. MUSCULOSKELETAL: No joint swelling or deformity. EXTREMITIES: No cyanosis, clubbing, or pedal edema. NEUROLOGICAL: Gross neurological examination did not reveal any focal deficits. SKIN: No rashes. Assessment and plan -Pt underwent laproscopic cholecystectomy today for cholelithiasis -Possibility of choledocholithiasis cannot be ruled out, Liver enzymes trended down, no MRCP, repeat labs in the morning -Gastroesophageal reflux disease; on protonix, hold home dose of motrin for now -Status post vaginal delivery 3 weeks ago, no complications per patient DVT prophylaxis: As per primary service, early ambulation Thank you kindly for this consultation we will continue to follow along with patient this hospital stay. Objective - Vital Signs Vital signs: Vital Signs Temp 98.3 F 02/03/22 11:02 Pulse 65 02/03/22 11:32 Resp 16 02/03/22 11:32 BP 129/71 02/03/22 11:32 Pulse Ox 100 02/03/22 11:32 Intake & Output 02/02/22 02/03/22 02/03/22 18:59 06:59 18:59 Intake Total 240 950 Output Total 5 Balance 240 945 Intake: IV 950 Oral 240 Output: Estimated Blood Loss 5 Other: Voiding Method Toilet Toilet # Voids 1 1 - Labs CBC & Chem 7: 02/01/22 04:50 02/03/22 06:34 Labs: Abnormal Lab Results - Last 24 Hours (Table) 02/03/22 Range/Units 06:34 Sodium 135 L (137-145) mmol/L Calcium 8.2 L (8.4-10.2) mg/dL AST 99 H (14-36) U/L ALT 242 H (4-34) U/L Alkaline Phosphatase 248 H (38-126) U/L Albumin 3.3 L (3.5-5.0) g/dL Microbiology - Last 24 Hours (Table) 02/01/22 04:50 Urine Culture - Final Urine,Voided Assessment and Plan Time with Patient: Less than 30
[2022-02-04] MEDS: ONDANSETRON 4 MG/2 ML VIAL IVP PRN ×2 (02:12→09:54)
[2022-02-04] MEDS: HYDROmorphone 1 MG/ML 1 ML SYRINGE IVP PRN ×3 (02:12→09:48)
[2022-02-04] MEDS: SODIUM CHLORIDE 0.9% 1,000 ML IV SCH (05:38)
[2022-02-04] MEDS: PANTOPRAZOLE 40 MG/10 ML VIAL IV SCH (08:07)
[2022-02-04] MEDS: DOCUSATE 100 MG CAP PO SCH (08:07)
[2022-02-04] MEDS ORDERED: ENOXAPARIN 40 MG/0.4 ML SYRINGE SQ SCH (09:00)
[2022-02-04 11:01] LABS: African American GFR (CKD) 143.5 (60.0-200.0); Albumin 4.1 g/dL (3.8-4.9); Albumin/Globulin Ratio 1.58 (1.60-3.17); Anion Gap 12.2 mmol/L (10.00-18.00); BUN/Creat Ratio 6.71 Ratio (12.00-20.00); Blood Urea Nitrogen 4.7 mg/dL (9.0-27.0); Calcium 9.1 mg/dL (8.7-10.3); Carbon Dioxide 25.8 mmol/L (20.0-27.5); Globulin 2.6 g/dL (1.6-3.3); Non-African American GFR(CKD) 123.9 (60.0-200.0); Potassium 3.6 mmol/L (3.5-5.5); Total Bilirubin 0.6 mg/dL (0.30-1.20); Total Protein 6.7 g/dL (6.2-8.2)
[2022-02-04] MEDS ORDERED: HYDROcodone/APAP 5-325MG 1 EACH TAB PO PRN (11:36)
--- NOTE | 2022-02-04 13:27 | P.DS ---
Providers Date of admission: 02/03/22 12:55 Expected date of discharge: 02/04/22 Attending physician: Esdras Smith Consults: 02/01/22 11:33 Consult Physician Routine Consulting Provider: Chaparrita Barba Consult Reason/Comments: Medical management Do you want consulting provider notified?: Yes Primary care physician: Stated None Hospital Course: Discharge diagnosis 1. Acute cholecystitis with cholelithiasis status post laparoscopic cholecystectomy 2. Choledocholithiasis Hospital course This is a 21-year-old female was admitted through the emergency with complaints of epigastric right upper quadrant pain. Patient's found have cholelithiasis. Patient also has mild elevation of her liver function tests. Patient status post laparoscopic cholecystectomy. She has tolerated surgery well. She is tolerating diet. She is having flatus. Her pain is controlled. She has been up and ambulating. Her LFTs have trended down. Incision sites clean dry and intact. She is stable for discharge. She is afebrile. Please refer to chart for any further details. Physician Log Scaler note has been reviewed by physician. Signing provider agrees with the documented findings, assessment, and plan of care. Patient Condition at Discharge: Stable Plan - Discharge Summary Discharge Rx Participant: No New Discharge Prescriptions: New Docusate [Colace] 100 mg PO BID #30 capsule HYDROcodone/APAP 5-325MG [Stephenson 5-325] 1 tab PO Q6HR PRN 3 Days #12 tab PRN Reason: Pain Continue Pnv No.95/Ferrous Fum/Folic AC [ Multivitamin Tablet] 1 tab PO DAILY Omeprazole Magnesium [PriLOSEC OTC] 20 mg PO DAILY PRN PRN Reason: Heartburn Ibuprofen [Motrin] 600 mg PO Q6H PRN PRN Reason: Mild Pain (Scale 1 To 3) Discharge Medication List Pnv No.95/Ferrous Fum/Folic AC [ Multivitamin Tablet] 1 tab PO DAILY 12/20/21 [History] Omeprazole Magnesium [PriLOSEC OTC] 20 mg PO DAILY PRN 12/26/21 [History] Ibuprofen [Motrin] 600 mg PO Q6H PRN 02/01/22 [History] Docusate [Colace] 100 mg PO BID #30 capsule 02/04/22 [Rx] HYDROcodone/APAP 5-325MG [Stephenson 5-325] 1 tab PO Q6HR PRN 3 Days #12 tab 02/04/22 [Rx] Follow up Appointment(s)/Referral(s): None,Stated [Primary Care Provider] - 1-2 days Esdras Smith MD [STAFF PHYSICIAN] - 1 Week Activity/Diet/Wound Care/Special Instructions: No driving while taking Stephenson No lifting over 10 pounds You may shower. No soaking or tub baths for 2 weeks Very light activity until you are reevaluated at your follow up appointment with your surgeon Discharge Disposition: HOME SELF-CARE
--- NOTE | 2022-02-04 14:12 | PN ---
PROGRESS NOTE DATE OF SERVICE: 02/04/2022 This 21-year-old woman who was admitted after laparoscopic cholecystectomy is improving significantly. No chest pain. No palpitation. PHYSICAL EXAMINATION: Pulse 83, blood pressure 120/72, respiration 18. CHEST: Clear to auscultation. CARDIOVASCULAR: S1, S2 muffled. ABDOMEN: Soft. Status post surgery. NERVOUS SYSTEM: No focal deficit. LABS: Sodium 138. LFTs are noted. ASSESSMENT: 1. Acute cholelithiasis, status post laparoscopic cholecystectomy. 2. Possible choledocholithiasis. 3. Gastroesophageal reflux disease. 4. Elevated LFTs. RECOMMENDATIONS AND DISCUSSION: I recommend to continue current medications, continue with the monitoring, symptomatic treatment. Recommend close followup with primary physician and follow-up labs also. Rest of the recommendations per Surgery. MMODL / IJN: [id number] /
[2022-02-04 14:56] VITALS: BP 122/79; PULSE 66; RESP 16; TEMP 97.6
[2022-02-04 15:34] LABS: Appearance,Urine Clear (Clear); Bilirubin,Urine Negative (Negative); Blood,Urine Moderate (Negative); Color,Urine Yellow; Glucose,Urine (UA) Negative (Negative); Ketones,Urine Negative (Negative); Leukocyte Esterase,Urine Trace (Negative); Mucus,Urine Rare /hpf; Nitrite,Urine Negative (Negative); PH, Urine 6.5 (5.0-8.0); Protein,Urine Negative (Negative); RBC,Urine 1 /hpf (0-5); Specific Gravity,Urine 1.008 (1.001-1.035); Squamous Epithelial Cell,Urine 1 /hpf (0-4); Urobilinogen,Urine <2.0 mg/dL (<2.0); WBC,Urine 3 /hpf (0-5)
== END 2022-02-04 15:18 | disposition home or self-care (01) | DRG 769 ==
LOC: EC 03:56 → 6NMEDSUR 07:51 → OBSVTOIN 02-03 12:55
PROVIDERS: ADMIT Surgery; ATTEND Surgery
PROC: 0FT44ZZ Resection of Gallbladder, Percutaneous Endoscopic Approach (ICD-10-PCS; principal; 2022-02-03 10:30)
DX: O99.63 Diseases of the digestive system complicating the puerperium (principal); K80.62 Calculus of gallbladder and bile duct with acute cholecystitis without obstruction; R42 Dizziness and giddiness; K21.9 Gastro-esophageal reflux disease without esophagitis; Z79.899 Other long term (current) drug therapy
CPT/HCPCS: 36415; 76705; 80053; 81001; 81025; 82150; 83690; 85025; 87086; 88304; 96361; 96374; 96375; 99285

== ENCOUNTER → 2022-05-27 | Outpatient (CLI) | payer OTHER | END | disposition home or self-care (01) | LOC: LABMAIN 17:08 | PROVIDERS: ATTEND Obstetrics & Gynecology | DX: Z53.9 Procedure and treatment not carried out, unspecified reason (principal) ==

== ENCOUNTER → 2022-05-29 | Outpatient (CLI) | payer OTHER | END | disposition home or self-care (01) | LOC: LABMAIN 16:44 | PROVIDERS: ATTEND Obstetrics & Gynecology | DX: Z53.9 Procedure and treatment not carried out, unspecified reason (principal) ==

== ENCOUNTER → 2022-05-30 | Outpatient (CLI) | payer OTHER ==
--- NOTE | 2022-05-31 10:09 | US ---
EXAMINATION TYPE: US pelvic complete DATE OF EXAM: 05/30/2022 COMPARISON: NONE CLINICAL HISTORY: N92.1 EXCESS MENSTRUATION R10.2 ABD PAIN. TECHNIQUE: Transabdominal (TA). Date of LMP: Patient has had heavy bleeding for 3 weeks. EXAM MEASUREMENTS: Uterus: 7.6 x 4.1 x 3.5 cm Endometrial Stripe: 0.6 cm Right Ovary: 2.2 x 1.3 x 1.5 cm Left Ovary: 3.4 x 1.8 x 2.1 cm 1. Uterus: Anteverted wnl 2. Endometrium: wnl 3. Right Ovary: wnl 4. Left Ovary: wnl 5. Bilateral Adnexa: wnl 6. Posterior cul-de-sac: wnl IMPRESSION: No evidence for acute pelvic process.
== END | disposition home or self-care (01) ==
LOC: RADUSWWP 16:04
PROVIDERS: ATTEND Obstetrics & Gynecology
DX: N92.1 Excessive and frequent menstruation with irregular cycle (principal)
CPT/HCPCS: 76856; 84702

== ENCOUNTER 2022-09-01 08:57 | Emergency (ER) | payer OTHER ==
[2022-09-01 09:29] LABS: Appearance,Urine Clear (Clear); Bilirubin,Urine Negative (Negative); Blood,Urine Negative (Negative); Color,Urine Light Yellow; Glucose,Urine (UA) Negative (Negative); Ketones,Urine Negative (Negative); Leukocyte Esterase,Urine Negative (Negative); Nitrite,Urine Negative (Negative); PH, Urine 6.5 (5.0-8.0); Protein,Urine Negative (Negative); Specific Gravity,Urine 1.015 (1.001-1.035); Urobilinogen,Urine <2.0 mg/dL (<2.0)
--- NOTE | 2022-09-01 10:12 | US ---
EXAMINATION TYPE: Transabdominal DATE OF EXAM: 09/01/2022 9:57 AM COMPARISON: NONE CLINICAL HISTORY: bleeding. EXAM PERFORMED: Transvaginal (TV) and Transabdominal (TA) EXAM MEASUREMENTS: GESTATIONAL AGE / DATING Physician Established: Not yet established Dates by LMP: 07/15/2022 (6 weeks/6 days) EDC: 04/21/2023 Dates by First Scan: No previous this is first scan Dates by Current Scan for: (6 weeks/2 days) EDC: 04/25/2023 MATERNAL ANATOMY Uterus: 8.9 x 5.1 x 6.1 cm Right Ovary: 3.5 x 2.0 x 2.8 cm Left Ovary: 2.5 x 1.7 x 2.7 cm Post CDS / Adnexa: wnl Presence of free fluid: none GESTATION / SURVEY CRL: 0.5 cm (6 weeks/2 days) Yolk Sac (normal less than 6mm): 0.3 cm Heart Rate: 112 bpm Rhythm: Normal IUP: Viable IUP Date of LMP: 07/15/2022 Beta HcG (if available): not available. Viable IUP that correlates with LMP. IMPRESSION: Viable intrauterine with ultrasound age of 6 weeks 2 days by crown-rump length.
--- NOTE | 2022-09-01 11:09 | ED ---
General Adult HPI - General Chief complaint: Vaginal Bleeding Stated complaint: 7 wks preg, vaginal bleeding & cramps Time Seen by Provider: 09/01/22 09:03 Source: patient, RN notes reviewed Mode of arrival: ambulatory Limitations: no limitations - History of Present Illness Initial comments: 22-year-old female presents emergency Department with chief complaint of vaginal bleeding early . Patient states she's not 6-7 weeks she is A1 states that she had some bleeding this morning which has nearly subsided. She had some mild lower abdominal cramping no dysuria patient does have some notable morning sickness but very mild. Patient denies fevers chills no dysuria no other complaints. - Related Data Home Medications Medication Instructions Recorded Confirmed No Known Home Medications 09/01/22 09/01/22 Allergies Allergy/AdvReac Type Severity Reaction Status Date / Time No Known Allergies Allergy Verified 09/01/22 11:01 Review of Systems ROS Statement: Those systems with pertinent positive or pertinent negative responses have been documented in the HPI. ROS Other: All systems not noted in ROS Statement are negative. Past Medical History Past Medical History: No Reported History Additional Past Medical History / Comment(s): vertigo History of Any Multi-Drug Resistant Organisms: None Reported Past Surgical History: No Surgical Hx Reported Past Anesthesia/Blood Transfusion Reactions: No Reported Reaction Past Psychological History: No Psychological Hx Reported Smoking Status: Never smoker Past Alcohol Use History: None Reported Past Drug Use History: None Reported - Past Family History Father Family Medical History: No Reported History General Exam Limitations: no limitations General appearance: alert, in no apparent distress Head exam: Present: atraumatic, normocephalic, normal inspection Eye exam: Present: normal appearance, PERRL, EOMI. Absent: scleral icterus, conjunctival injection, periorbital swelling ENT exam: Present: normal exam, mucous membranes moist Neck exam: Present: normal inspection. Absent: tenderness, meningismus, lymphadenopathy Respiratory exam: Present: normal lung sounds bilaterally. Absent: respiratory distress, wheezes, rales, rhonchi, stridor Cardiovascular Exam: Present: regular rate, normal rhythm, normal heart sounds. Absent: systolic murmur, diastolic murmur, rubs, gallop, clicks GI/Abdominal exam: Present: soft, normal bowel sounds. Absent: distended, tenderness, guarding, rebound, rigid Course Vital Signs 09/01/22 09/01/22 09/01/22 09:10 09:22 10:05 Temperature 98.0 F 97.9 F Pulse Rate 73 75 68 Respiratory 18 16 16 Rate Blood Pressure 121/83 130/69 123/87 O2 Sat by Pulse 98 97 98 Oximetry Medical Decision Making - Medical Decision Making Ultrasound shows single viable IUP. Patient does notice distress urinalysis unremarkable. Patient is B+ blood type patient we discharged stable condition. - Lab Data Lab Results 09/01/22 09/01/22 Range/Units 09:21 09:36 HCG, Quant 56798.0 mIU/mL Urine Color Light Yellow Urine Appearance Clear (Clear) Urine pH 6.5 (5.0-8.0) Ur Specific [place] 1.015 (1.001-1.035) Urine Protein Negative (Negative) Urine Glucose (UA) Negative (Negative) Urine Ketones Negative (Negative) Urine Blood Negative (Negative) Urine Nitrite Negative (Negative) Urine Bilirubin Negative (Negative) Urine Urobilinogen <2.0 (<2.0) mg/dL Ur Leukocyte Esterase Negative (Negative) Disposition Clinical Impression: Threatened miscarriage Disposition: HOME SELF-CARE Condition: Stable Instructions (If sedation given, give patient instructions): Threatened Miscarriage (ED) Additional Instructions: Please return to the Emergency Department if symptoms worsen or any other concerns. Is patient prescribed a controlled substance at d/c from ED?: No Referrals: None,Stated [Primary Care Provider] - 1-2 days Time of Disposition: 11:09
[2022-09-01 11:24] VITALS: BP 130/70; PULSE 79; RESP 20; TEMP 98.6
== END 2022-09-01 11:24 | disposition home or self-care (01) ==
LOC: EC 08:57
DX: O20.0 Threatened abortion (principal); Z3A.01 Less than 8 weeks gestation of pregnancy
CPT/HCPCS: 36415; 76801; 76817; 81003; 84702; 99283

== ENCOUNTER 2023-04-16 06:00 | Inpatient (IN) | payer OTHER ==
--- NOTE | 2023-04-15 19:38 | P.HPOB ---
History of Present Illness H&P Date: 04/15/23 Chief Complaint: Induction of labor This is a 22 y.o. female, 3, para 1, with an estimated date of confinement of 04/21/2023, estimated gestational age of 39-2/7 weeks, who presents for induction of labor. Her last ultrasound showed estimated weight of 7#14oz. She complains of irregular contractions and pressure. course has been essentially uncomplicated. labs: Hepatits B surface antigen-neg RPR-NR Rubella-immune Blood type-B+ Antibody screen-neg HIV-NR Hemoglobin-12.9 Toxoplasma-neg Hepatitis C antibody-neg Random glucose-85 GC/Chlamydia/Trich-neg 1 hr. GTT-102 GBS-neg OB Hx: . 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 Social Hx: Single. Unemployed. Review of Systems Constitutional: Denies chills, Denies fever Eyes: denies blurred vision, denies pain Ears, nose, mouth and throat: Reports vertigo, Denies headache, Denies sore throat Cardiovascular: Denies chest pain, Denies shortness of breath Respiratory: Denies cough Gastrointestinal: Reports abdominal pain (irregular contractions) Genitourinary: Reports pelvic pain, Reports Musculoskeletal: Reports low back pain Integumentary: Denies pruritus, Denies rash Neurological: Denies numbness, Denies weakness Psychiatric: Denies anxiety, Denies depression Past Medical History Past Medical History: No Reported History Additional Past Medical History / Comment(s): vertigo History of Any Multi-Drug Resistant Organisms: None Reported Past Surgical History: No Surgical Hx Reported Past Anesthesia/Blood Transfusion Reactions: No Reported Reaction Past Psychological History: No Psychological Hx Reported Smoking Status: Never smoker Past Alcohol Use History: None Reported Past Drug Use History: None Reported - Past Family History Father Family Medical History: Hypertension Mother Family Medical History: Diabetes Mellitus Medications and Allergies Home Medications Medication Instructions Recorded Confirmed Type Vit No.179/Iron/Folic 1 each PO 04/15/23 History [ Tablet] Allergies Allergy/AdvReac Type Severity Reaction Status Date / Time No Known Allergies Allergy Verified 09/01/22 11:01 Exam Osteopathic Statement: *. No significant issues noted on an osteopathic structural exam other than those noted in the History and Physical/Consult. HEENT: within normal limits Heart: regular rate and rhythm Lungs: clear to auscultation bilaterally Abdomen: , non-tender Cervix: 1.5 cm/60%/-2 heart tones: 140's by doppler Extremities: neg. Nori's Assessment and Plan (1) 39 weeks gestation of Status: Acute Code(s): Z3A.39 - 39 WEEKS GESTATION OF SNOMED Code(s): 09101134 Plan: Proceed with oxytocin induction of labor. Expectant management. Epidural anesthesia if desired.
[2023-04-16] MEDS ORDERED: miSOPROStoL 200 MCG TAB PO PRN (06:09)
[2023-04-16] MEDS ORDERED: METHYLERGONOVINE 0.2 MG/ML 1 ML AMP IM PRN (06:09)
[2023-04-16] MEDS ORDERED: LIDOCAINE 1% (10MG/ML) FOR IV START INTRADERMA PRN (06:09)
[2023-04-16] MEDS ORDERED: LIDOCAINE 0.5% (PF) 5 MG/ML (50 ML SDV) SQ PRN (06:09)
[2023-04-16] MEDS ORDERED: OXYTOCIN 30 UNITS/500 ML NS 30 UNIT in SALINE 1 500ML.BAG IV SCH ×2 (06:09→16:56)
[2023-04-16] MEDS ORDERED: TERBUTALINE 1 MG/ML VIAL SQ PRN (06:09)
[2023-04-16] MEDS ORDERED: CARBOPROST TROMETHAMINE 250 MCG/ML 1 ML AMP IM PRN (06:09)
[2023-04-16] MEDS ORDERED: TRANEXAMIC ACID IN NACL,ISO-OS 1,000 MG in EMPTY BAG 1 BAG IV PRN (06:09)
[2023-04-16] MEDS ORDERED: OXYTOCIN 10 UNIT/ML 1 ML VIAL IM PRN (06:09)
[2023-04-16 06:40] VITALS: RESP 16
[2023-04-16] MEDS: LACTATED RINGERS 1,000 ML IV SCH ×2 (06:40→12:30)
[2023-04-16 06:42] LABS: Basophils % (A) 0 %; Eosinophils # (A) 0.2 k/uL (0-0.7); Eosinophils % (A) 2 %; HCT 37.3 % (34.0-46.0); HGB 12.9 gm/dL (11.4-16.0); Lymphocytes # (A) 1.5 k/uL (1.0-4.8); Lymphocytes % (A) 18 %; MCH 33.1 pg (25.0-35.0); MCHC 34.6 g/dL (31.0-37.0); MCV 95.4 fL (80.0-100.0); Mean Platelet Volume 7.3; Monocytes # (A) 0.5 k/uL (0-1.0); Monocytes % (A) 6 %; Neutrophils % (A) 72 %; Platelet Count 269 k/uL (150-450); RBC 3.91 m/uL (3.80-5.40); WBC 8.3 k/uL (3.8-10.6)
[2023-04-16] MEDS ORDERED: ROPIVACAINE 5 MG/ML 20 ML AMPULE ONE (10:33)
[2023-04-16] MEDS ORDERED: fentaNYL (PF) 50 MCG/ML 5 ML AMP ONE (10:33)
[2023-04-16] MEDS ORDERED: SODIUM CHLORIDE 0.9% 100 ML BAG ONE (10:33)
[2023-04-16] MEDS ORDERED: BENZOCAINE/MENTHOL SPRAY 1 GM/SPRAY AEROSOL TOPICAL PRN (16:56)
[2023-04-16] MEDS ORDERED: LANOLIN CREAM 5 GM TUBE TOPICAL PRN (16:56)
[2023-04-16] MEDS ORDERED: diphenhydrAMINE 50 MG/ML 1 ML VIAL IVP PRN ×2 (16:56)
[2023-04-16] MEDS ORDERED: SIMETHICONE 80 MG CHEWABLE PO PRN (16:56)
[2023-04-16] MEDS ORDERED: HYDROCORTISONE 2.5% RECTAL CREAM 30 GM TUBE RECTAL PRN (16:56)
[2023-04-16] MEDS ORDERED: diphenhydrAMINE 50 MG CAP PO PRN (16:56)
[2023-04-16] MEDS ORDERED: ZOLPIDEM 5 MG TAB PO PRN (16:56)
[2023-04-16] MEDS ORDERED: diphenhydrAMINE 25 MG CAP PO PRN (16:56)
[2023-04-16] MEDS: IBUPROFEN 600 MG TAB PO PRN (17:21)
--- NOTE | 2023-04-16 18:47 | P.PROBDLV ---
Vaginal Delivery Note - . Vaginal Delivery Note: The patient progressed to complete dilation after oxytocin induction of labor and artificial rupture membranes with clear fluid noted. She did receive epidural anesthesia while in labor. Once reaching complete, she began pushing. Infant's head came to a crown. With one further push, the 's head came across the perineum followed by the anterior shoulder. Nose and mouth were bulb suctioned. Nuchal cord times one was then reduced around the body with one fu rther push and the was placed on mother's abdomen. Cord was clamped and cut. A viable male is noted with scores of 9 at 1 minute and 9 at 5 minutes and weight is noted to be 8 lbs. 0 oz. Placenta delivered shortly thereafter, intact, with a three-vessel cord. Uterus contracted well after oxytocin was given and uterine massage was carried out. Inspection of the perineum revealed a small second-degree perineal laceration. This area was anesthetized with 1% lidocaine and then sutured with 3-0 Vicryl suture in the usual multilayer fashion. Estimated blood loss is approximately 200 mL's.
[2023-04-16] MEDS: SENNOSIDES-DOCUSATE SODIUM 1 EACH TAB PO SCH (20:22)
[2023-04-16] MEDS: ACETAMINOPHEN TAB 325 MG TAB PO PRN (22:19)
[2023-04-17] MEDS: IBUPROFEN 600 MG TAB PO PRN ×2 (01:17→07:50)
[2023-04-17] MEDS: ACETAMINOPHEN TAB 325 MG TAB PO PRN ×2 (05:19→12:22)
[2023-04-17 07:09] LABS: Basophils # (A) 0.1 k/uL (0-0.2); Basophils % (A) 1 %; Eosinophils # (A) 0.1 k/uL (0-0.7); Eosinophils % (A) 2 %; HCT 36.5 % (34.0-46.0); HGB 12.5 gm/dL (11.4-16.0); Lymphocytes # (A) 2.2 k/uL (1.0-4.8); Lymphocytes % (A) 24 %; MCH 33.2 pg (25.0-35.0); MCHC 34.2 g/dL (31.0-37.0); MCV 97.2 fL (80.0-100.0); Mean Platelet Volume 7.3; Monocytes # (A) 0.5 k/uL (0-1.0); Monocytes % (A) 5 %; Neutrophils # (A) 6.4 k/uL (1.3-7.7); Neutrophils % (A) 68 %; Platelet Count 237 k/uL (150-450); RBC 3.75 m/uL (3.80-5.40); WBC 9.4 k/uL (3.8-10.6)
[2023-04-17] MEDS: SENNOSIDES-DOCUSATE SODIUM 1 EACH TAB PO SCH (07:50)
--- NOTE | 2023-04-17 08:07 | P.DS ---
Providers Date of admission: 04/16/23 06:00 Expected date of discharge: 04/17/23 Attending physician: Diane Mills Primary care physician: Stated None - Discharge Diagnosis(es) (1) 39 weeks gestation of Current Visit: No Status: Acute Hospital Course: This is a 22-year-old female 3 para 1 at 39-2/7 weeks who presented for induction of labor. She underwent oxytocin induction of labor and delivered vaginally a viable male on 04/16/2023 with scores of 9 at 1 minute and 9 at 5 minutes and infant weight of 8 lbs. 0 oz. Her course has been uncomplicated. Lochia has been decreasing. Her pain is well-controlled with ibuprofen. She is breast-feeding. Vital signs are stable. Abdomen is soft with fundus firm and nontender. Extremities show negative Homans. Impression is status post vaginal delivery day #1. Plan is to discharge home today. Routine instructions are given. She is ad vised to follow up in the office in 6 weeks for check. She is advised to call the office if she has any further questions or concerns prior to her appointment time. She will be given a prescription for ibuprofen and a breast pump. Procedures: Oxytocin induction of labor Spontaneous vaginal delivery of a viable male infant on 04/16/2023 Patient Condition at Discharge: Stable Plan - Discharge Summary New Discharge Prescriptions: New Ibuprofen [Motrin] 600 mg PO Q6HR PRN #60 tab PRN Reason: Mild Pain (Scale 1 To 3) Continue Vit No.179/Iron/Folic [ Tablet] 1 each PO DAILY Discharge Medication List Vit No.179/Iron/Folic [ Tablet] 1 each PO DAILY 04/15/23 [History] Ibuprofen [Motrin] 600 mg PO Q6HR PRN #60 tab 04/17/23 [Rx] Follow up Appointment(s)/Referral(s): Diane Mills DO [Doctor of Osteopathic Medicine] - 05/26/23 3:30 pm Activity/Diet/Wound Care/Special Instructions: Instructions 1. Do not begin any exercise program for 3 weeks. 2. Do not resume sexual relations for 3 weeks or longer if uncomfortable. 3. You may take tub baths or showers at any time. 4. You may use tampons if desired after 3 weeks. 5. Keep the area of episiotomy (stitches) clean and dry. 6. If you are not nursing, wear a good fitting, supportive bra during the day and limit fluid intake for at least 1 week to prevent breast engorgement. 7. Call the office, [phone], within the next week to make appointment for your 6 week checkup if it has not already been made. 8. Report any of the following occurrences to the doctor promptly: a. Heavy, excessive bleeding b. Chills, fever c. Burning or frequency of urination d. Pain or redness and breasts if nursing e. Increasing pain or swelling in episiotomy (stitches). In addition to the above instructions, the following additional should be followed: 1. No heavy lifting or straining (exercising) until after 6 week checkup. 2. Keep abdominal incision clean and dry: You may wear a dressing if more comfortable. 3. Make office appointment for 10 days after going home or as instructed by her doctor. Discharge Disposition: HOME SELF-CARE
[2023-04-17 15:11] VITALS: BP 126/63; PULSE 86; TEMP 98.2
== END 2023-04-17 17:01 | disposition home or self-care (01) | DRG 560 ==
LOC: 4FBP 06:00
PROVIDERS: ADMIT Obstetrics & Gynecology; ATTEND Obstetrics & Gynecology
PROC: 10E0XZZ Delivery of Products of Conception, External Approach (ICD-10-PCS; principal; 2023-04-16)
PROC: 0KQM0ZZ Repair Perineum Muscle, Open Approach (ICD-10-PCS; 2023-04-16)
PROC: 3E033VJ Introduction of Other Hormone into Peripheral Vein, Percutaneous Approach (ICD-10-PCS; 2023-04-16)
PROC: 10907ZC Drainage of Amniotic Fluid, Therapeutic from Products of Conception, Via Natural or Artificial Opening (ICD-10-PCS; 2023-04-16)
DX: O69.81X0 Labor and delivery complicated by cord around neck, without compression, not applicable or unspecified (principal); O70.1 Second degree perineal laceration during delivery; O98.32 Other infections with a predominantly sexual mode of transmission complicating childbirth; A59.9 Trichomoniasis, unspecified; Z37.0 Single live birth; Z3A.39 39 weeks gestation of pregnancy
CPT/HCPCS: 85025; 86850; 86900; 86901